=== PATIENT | female | born 1935 | race Caucasian/White ===

== ENCOUNTER 2016-03-09 18:09 | Emergency (ER) | payer MEDICARE ==
--- NOTE | 2016-03-09 18:33 | Emergency Department Record ---
History of Present Illness - General Chief complaint: Allergic Reaction Stated complaint: REACTION TO MEDICATION Time Seen by Provider: 03/09/16 18:24 Source: Patient - History of Present Illness Initial Comments: The patient has been hospitalized twice over the holidays, initially for a "mini stroke" and then also is being treated for pneumonia. She started on zithromax, but had her med changed to doxycycline because of concern with a medication reaction with other meds she was taking. Since the doxy, she has had epigastric discomfort and bruising on her wrist, should, leg and other places. She denies rashes, dysphagia, throat swelling, but has some SOB which she has been thinking was from her pneumonia. She has had about 2 days of this antibiotic. She has a history of chronic a. fib, sometimes with a rapid rate, aortic stenosis with a murmur, kidney failure and renal insufficiency. - Related Data Home Medications Medication Instructions Recorded Confirmed Last Taken Amiodarone HCl 100 mg PO DAILY 11/01/13 03/09/16 1 Day Ago Atorvastatin Calcium [Lipitor] 40 mg PO DAILY 11/01/13 03/09/16 1 Day Ago Calcium Citrate/Vitamin D3 1 each PO BID 11/01/13 03/09/16 1 Day Ago [Calcium Citrate - Vit D Tablet] Carboxymethylcellulose Sodium 15 ml OP QPM 11/01/13 03/09/16 1 Day Ago [Refresh Tears] Clonidine HCl 0.1 mg PO BID PRN 11/01/13 03/09/16 1 Day Ago Docusate Sodium [Colace] 100 mg PO TID PRN 11/01/13 03/09/16 1 Day Ago Doxazosin Mesylate [Cardura] 12 mg PO DAILY 11/01/13 03/09/16 1 Day Ago Fish Oil/Dha/Epa [Fish Oil 1,200 1 each PO BID 11/01/13 03/09/16 1 Day Ago mg Fish Oil] Gabapentin [Neurontin] 600 mg PO TID 11/01/13 03/09/16 1 Day Ago Levothyroxine Sodium [Synthroid] 125 mcg PO DAILY 11/01/13 03/09/16 1 Day Ago Magnesium 250 mg PO DAILY 11/01/13 03/09/16 1 Day Ago Montelukast Sodium [Singulair] 10 mg PO DAILY 11/01/13 03/09/16 1 Day Ago Multivitamin [Multi-Vitamin Daily] 1 each PO DAILY 11/01/13 03/09/16 1 Day Ago Omeprazole [Prilosec] 20 mg PO DAILY 11/01/13 03/09/16 1 Day Ago Propylene Glycol/Peg 400 [Systane 5 ml OP QPM 11/01/13 03/09/16 1 Day Ago 0.3-0.4% Eye Drops] Psyllium Husk (with Sugar) 3.4 gm PO DAILY PRN 11/01/13 03/09/16 1 Day Ago [Metamucil Packet] Ubidecarenone [Coq-10] 200 mg PO DAILY 11/01/13 03/09/16 1 Day Ago Warfarin Sodium [Coumadin] 5 mg PO DAILY 11/01/13 03/09/16 1 Day Ago Spironolactone [Aldactone] 50 mg PO DAILY 02/01/14 03/09/16 1 Day Ago Ascorbate Calcium/Bioflavonoid 1 each PO DAILY tab 11/21/15 03/09/16 1 Day Ago [Eva-C 500 Mg Tablet] Citalopram Hydrobromide [Celexa] 20 mg PO QD tab 11/21/15 03/09/16 1 Day Ago Ferrous Sulfate [Iron] 65 mg PO BID tab 11/21/15 03/09/16 1 Day Ago Polyethylene Glycol 3350 [Miralax] 1 packet PO DAILY packet 11/21/15 03/09/16 1 Day Ago Azelastine HCl 205.5 mcg NS BID 01/29/16 03/09/16 1 Day Ago Propylene Glycol/Peg 400 [Systane 2 drop OP DAILY 01/29/16 03/09/16 1 Day Ago 0.3-0.4% Eye Drops] Baclofen 10 mg PO DAILY 02/26/16 03/09/16 1 Day Ago Melatonin 10 mg PO QHS 02/26/16 03/09/16 1 Day Ago Allergies Allergy/AdvReac Type Severity Reaction Status Date / Time aspirin [From Aggrenox] Allergy Severe HEADACHE Verified 03/09/16 18:27 dipyridamole [From Aggrenox] Allergy Severe HEADACHE Verified 03/09/16 18:27 imipramine HCl Allergy Severe HYPERTENSION, Verified 03/09/16 18:27 [From Tofranil] INCREASED HEART RATE methyldopa [From Aldomet] Allergy Severe HEPATITIS Verified 03/09/16 18:27 methyldopate HCl Allergy Severe HEPATITIS Verified 03/09/16 18:27 [From Aldomet] Tetanus Vaccines and Toxoid Allergy Severe RASH, Verified 03/09/16 18:27 [Tetanus Vaccines & Toxoid] SWELLING, ITCHING clopidogrel bisulfate Allergy Intermediate BRUISING Verified 03/09/16 18:27 [From Plavix] lidocaine Allergy Intermediate FAINTING Verified 03/09/16 18:27 metaxalone [From Skelaxin] Allergy Intermediate ITCHING Verified 03/09/16 18:27 oxybutynin chloride Allergy Intermediate HEARTBURN Verified 03/09/16 18:27 [From Ditropan] paroxetine HCl [From Paxil] Allergy Intermediate DIARRHEA Verified 03/09/16 18: 27 potassium Allergy Mild NAUSEA Verified 03/09/16 18:27 carbamazepine [From Tegretol] AdvReac Intermediate HYPERTENSIO Verified 18:27 N Review of Systems Reviewed: No additional complaints except as noted below Constitutional: Reports: As per HPI. Denies: Chills, Fever, Malaise, Night sweats, Weakness, Weight change Eyes: Reports: As per HPI. Denies: Eye discharge, Eye pain, Photophobia, Vision change ENT: Reports: As per HPI. Denies: Congestion, Dental pain, Ear pain, Epistaxis , Hearing loss, Throat pain Respiratory: Reports: As per HPI. Denies: Cough, Dyspnea, Hemoptysis, Stridor, Wheezes Cardiovascular: Reports: As per HPI. Denies: Arrhythmia, Chest pain, Dyspnea on exertion, Edema, Murmurs, Orthopnea, Palpitations, Paroxysmal nocturnal dyspnea, Rheumatic Fever, Syncope Endocrine: Reports: As per HPI. Denies: Fatigue, Heat or cold intolerance, Polydipsia, Polyuria Gastrointestinal: Reports: As per HPI. Denies: Abdominal pain, Constipation, Diarrhea, Hematemesis, Hematochezia, Melena, Nausea, Vomiting Genitourinary: Reports: As per HPI. Denies: Abnormal menses, Discharge, Dyspareunia, Dysuria, Frequency, Hematuria, Incontinence, Retention, Urgency Musculoskeletal: Reports: As per HPI. Denies: Arthralgia, Back pain, Gout, Joint swelling, Myalgia, Neck pain Skin: Reports: As per HPI. Denies: Bruising, Change in color, Change in hair/ nails, Lesions, Pruritus, Rash Neurological: Reports: As per HPI. Denies: Abnormal gait, Confusion, Headache, Numbness, Paresthesias, Seizure, Tingling, Tremors, Vertigo, Weakness Psychiatric: Reports: As per HPI. Denies: Anxiety, Auditory hallucinations, Depression, Homicidal thoughts, Suicidal thoughts, Visual hallucinations Hematological/Lymphatic: Reports: As per HPI. Denies: Anemia, Blood Clots, Easy bleeding, Easy bruising, Swollen glands Past Medical History - SOCIAL HISTORY Smoking Status: Former smoker Drug Use: None - RESPIRATORY Hx Respiratory Disorders: No Hx Bronchitis: Yes (not in past couple of yrs) - CARDIOVASCULAR Hx Cardio Disorders: Yes Hx Irregular Heartbeat: Yes (A fib) - NEURO Hx Neuro Disorders: Yes Hx CVA: Yes - GI Hx GI Disorders: Yes Hx Reflux: Yes Hx Irritable Bowel: Yes Hx Ulcer: Yes Hx of Polyps: Yes Comment:: Microscopic colitis, Christiansen's Esophagus - Hx Genitourinary Disorders: Yes Hx Bladder Problem: Yes - ENDOCRINE Hx Endocrine Disorders: Yes Hx Diabetes: Yes Hx Thyroid Disease: Yes Comment:: 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 - MUSCULOSKELETAL Hx Musculoskeletal Disorders: Yes Hx Arthritis: Yes Hx Fibromyalgia: Yes Comment:: DJD - PSYCH Hx Psych Problems: No - HEMATOLOGY/ONCOLOGY Hx Hematology/Oncology Disorders: Yes Hx Anemia: Yes Family Medical History Hx Cancer: Mother, Brother/Sister Hx Heart Disease: Father, Brother/Sister Physical Exam - General General Appearance: Alert, Oriented x3, Cooperative, No acute distress - Head Head exam: Normal inspection Head exam detail: Other (no residual facial droop or defecit ). negative: Tenderness of temporal artery - Eye Eye exam: Normal appearance, PERRL, EOMI. negative: Nystagmus Pupils: Normal accommodation - ENT ENT exam: Normal exam, Mucous membranes moist, Normal external ear exam, Normal orophraynx, TM's normal bilaterally Ear exam: Normal external inspection. negative: External canal tenderness Nasal Exam: Normal inspection. negative: Discharge, Sinus tenderness Mouth exam: Normal external inspection, Tongue normal Teeth exam: Normal inspection. negative: Dental caries Throat exam: Normal inspection. negative: Tonsillar erythema, Tonsillar exudate - Neck Neck exam: Normal inspection, Full ROM. negative: Lymphadenopathy, Meningismus , Tenderness - Respiratory Respiratory exam: Decreased breath sounds, Prolonged expiratory, Other (kyphosis ). negative: Accessory muscle use, Chest wall tenderness, Rales, Respiratory distress, Rhonchi, Stridor, Wheezes - Cardiovascular Cardiovascular Exam: Regular rate, Normal rhythm, Normal heart sounds - GI/Abdominal GI/Abdominal exam: Soft, Normal bowel sounds, Tenderness (mild tenderness in epigastric region, no other adominal tenderness) - Rectal Rectal exam: Deferred - exam: Deferred - Extremities Extremities exam: Normal inspection, Full ROM, Normal capillary refill, Pedal edema (bilateral 1+ pitting edema up to distal 1/2 of calf bilaterally, appears chronic). negative: Calf tenderness, Joint swelling, Tenderness - Back Back exam: Reports: Normal inspection, Full ROM. Denies: Muscle spasm, Rash noted, Tenderness, Vertebral tenderness - Neurological Neurological exam: Alert, CN II-XII intact, Normal gait, Oriented X3, Reflexes normal - Psychiatric Psychiatric exam: Normal affect, Normal mood - Skin Skin exam: Dry, Intact, Normal color, Warm, Other (ecchymosis over left volar wrist, left shoulder). negative: Petechiae, Rash Course - Reevaluation(s) Reevaluation #1: The patient's results were all reviewed and compared to the extensive old record faxed from [facility] Numerous chronic changes such as chronic renal insufficiency, anemia, atrial fib, CMG, all of which are old. She is comfortable discontinuing the antibiotic as her CXR shows no pneumonia and she feels she is reacting to it with bruising. She has appointment with the chronic disease epidemiologist on Thursday in 36 hours and will follow up then. She also has a PCP follow up in the next week. 03/09/16 22:03 Reevaluation #2: Rectal exam was nontender, scant stool on glove and was negative for hemoccult blood. She is currently taking iron pills for this chronic anemia. 03/09/16 22:08 Medical Decision Making - Management Options MDM Management: No Additional Work-up Planned - Data Complexity MDM Data: Labs Ordered and/or Reviewed, X-Ray Ordered and/or Reviewed (CXR: Stable cardiomegally, no acute abnormality per radiologist.), EKG Ordered and/ or Reviewed - Lab Data Result diagrams: 03/09/16 18:50 03/09/16 18:50 - EKG Data -: EKG Interpreted by Me EKG: No Acute Changes, Unchanged From Previous (Old LBBB, NSR as before) Disposition Disposition: Discharge Clinical Impression: Bruises easily, Adverse effect of doxycycline, Renal insufficiency Disposition: Home, Self-Care Condition: (1) Good Instructions: Adverse Drug Reaction (ED) Additional Instructions: Discontinue doxycycline. Continue present meds. Follow up Thursday03-11-16 as previously arranged with chronic disease epidemiologist for hg. of 8.7 Follow up with PCP.
[2016-03-09 18:57] LABS: BASO % 0.5 % (0-6); EOS % 4.4 % (0-6); GRAN % 65.9 % (47-80); HEMOGLOBIN 8.7 gm/dl (11.6-16.0); MEAN CELL VOLUME 95.7 fl (81-97); MEAN CORPUSCULAR HGB CONC 32.2 g/dl (32-36); MEAN PLATELET VOLUME 8.3 fl (7.4-10.4); MONO % 11.2 % (0-9); PLATELET COUNT 227 K/uL (130-400); RED BLOOD COUNT 2.82 M/uL (3.80-5.40); RED CELL DISTRIBUTION WIDTH 12.4 % (11.5-14.5); WHITE BLOOD COUNT W/O DIFF 6.1 K/uL (4.2-12.2)
[2016-03-09 18:58] LABS: MEAN CORPUSCULAR HEMOGLOBIN 30.8 pg (27-33)
[2016-03-09 19:08] LABS: ALBUMIN 3.9 gm/dL (3.5-5.0); ALKALINE PHOSPHATASE 51 U/L (38-126); ALT/SGPT 41 U/L (9-52); ANION GAP 5.8 (7-16); AST/SGOT 19 U/L (14-36); BILIRUBIN,TOTAL 0.29 mg/dL (0.2-1.3); BLOOD UREA NITROGEN 42 mg/dL (7-17); CARBON DIOXIDE 25.2 mmol/L (22-30); CREATINE PHOSPHOKINASE 26 U/L (30-135); CREATININE 1.8 mg/dL (0.52-1.04); EST GLOMERULAR FILTRATION RATE 29 ml/min; GLUCOSE,RANDOM 104 mg/dL (70-110); LIPASE 79 U/L (23-300); TOTAL PROTEIN 6.7 gm/dL (6.3-8.2)
[2016-03-09 19:12] LABS: D-DIMER 1.06 mg/L FEU (0-0.59); INR 1.83; PARTIAL THROMBOPLASTIN TIME 37.3 SECONDS (24.5-39.1); PROTHROMBIN TIME (PATIENT) 20.7 SECONDS (9.5-12.1)
[2016-03-09 19:20] LABS: CKMB 1.9 ug/L (0-6)
[2016-03-09 19:22] LABS: TROPONIN I < 0.012 ng/mL (0.00-0.034)
[2016-03-09 20:36] LABS: URINE APPEARANCE CLEAR; URINE BILIRUBIN NEGATIVE (NEGATIVE); URINE BLOOD NEGATIVE (NEGATIVE); URINE COLOR YELLOW; URINE GLUCOSE (UA) NEGATIVE (NEGATIVE); URINE KETONE NEGATIVE (NEGATIVE); URINE LEUKOCYTE ESTERASE NEGATIVE (NEGATIVE); URINE NITRITE NEGATIVE (NEGATIVE); URINE PROTEIN NEGATIVE (NEGATIVE); URINE UROBILINOGEN 0.2 E.U./dL (0.20 - 1.00)
--- NOTE | 2016-03-13 12:52 | RADIOLOGY REPORT ---
EXAM: CHEST, TWO VIEWS HISTORY: CHEST TIGHTNESS AND ATRIAL FIBRILLATION. RECENT PNEUMONIA. MEDICATION REACTION TODAY. SHORTNESS OF BREATH. TECHNIQUE: AP and lateral upright views of the chest were obtained. Comparison: 07/03/15. FINDINGS: The heart is mildly enlarged, but stable. The mediastinum and pulmonary vasculature are normal. There is calcification of the aorta. The lungs are hyperinflated consistent with COPD. There are no acute infiltrates or effusion. There is no pneumothorax. The bones appear intact. IMPRESSION: 1. STABLE CARDIOMEGALY AND COPD. 2. NO ACUTE CHEST PATHOLOGY. JOB NUMBER: [id number] [facility] [place] [facility]
== END 2016-03-09 22:24 | disposition home or self-care (01) ==
LOC: ER 18:09
DX: T36.4X5A Adverse effect of tetracyclines, initial encounter (principal); R06.02 Shortness of breath; R10.13 Epigastric pain; S40.012A Contusion of left shoulder, initial encounter; S60.212A Contusion of left wrist, initial encounter; I48.91 Unspecified atrial fibrillation; N18.9 Chronic kidney disease, unspecified; R07.89 Other chest pain; Z79.01 Long term (current) use of anticoagulants; D64.9 Anemia, unspecified
CPT/HCPCS: 71020; 80048; 80076; 81003; 82550; 82553; 83690; 83880; 84443; 84484; 85025; 85379; 85610; 85730; 93005; 93010; 99283; 99284

== ENCOUNTER 2016-05-13 06:18 | Emergency (ER) | payer MEDICARE ==
--- NOTE | 2016-05-13 06:43 | Emergency Department Record ---
History of Present Illness - General Source: Patient Mode of Arrival: Ambulatory Limitations: No limitations - History of Present Illness Initial Comments: 80 yo female presents to ED with a CC of fast, irregular heart beat that woke her up around 4:00 AM. Patient reports a history of previous symptoms requiring cardioversion previously. Patient describes her symptoms as a "pressure" in the upper chest/throat area. 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 DC Complaint: Atrial fibrillation Onset/Timin -: Hour(s) Context: Awoke with symptoms Arrythmia History: Atrial fibrillation, History of electrical cardioversion, On anti-coagulants Associated Symptoms: Chest pain <WARREN GOLDSMITH - Last Filed: 05/13/16 06:36> <Matt Harrell - Last Filed: 05/13/16 08:23> - General Chief Complaint: Arrythmia/Palpitations Stated Complaint: AFIB Time Seen by Provider: 05/13/16 06:35 - Related Data Home Medications Medication Instructions Recorded Confirmed Last Taken Amiodarone HCl 100 mg PO DAILY 11/01/13 03/09/16 1 Day Ago Atorvastatin Calcium [Lipitor] 40 mg PO DAILY 11/01/13 03/09/16 1 Day Ago Calcium Citrate/Vitamin D3 1 each PO BID 11/01/13 03/09/16 1 Day Ago [Calcium Citrate - Vit D Tablet] Carboxymethylcellulose Sodium 15 ml OP QPM 11/01/13 03/09/16 1 Day Ago [Refresh Tears] Clonidine HCl 0.1 mg PO BID PRN 11/01/13 03/09/16 1 Day Ago Docusate Sodium [Colace] 100 mg PO TID PRN 11/01/13 03/09/16 1 Day Ago Doxazosin Mesylate [Cardura] 12 mg PO DAILY 11/01/13 03/09/16 1 Day Ago Fish Oil/Dha/Epa [Fish Oil 1,200 1 each PO BID 11/01/13 03/09/16 1 Day Ago mg Fish Oil] Gabapentin [Neurontin] 600 mg PO TID 11/01/13 03/09/16 1 Day Ago Levothyroxine Sodium [Synthroid] 125 mcg PO DAILY 11/01/13 03/09/16 1 Day Ago Magnesium 250 mg PO DAILY 11/01/13 03/09/16 1 Day Ago Montelukast Sodium [Singulair] 10 mg PO DAILY 11/01/13 03/09/16 1 Day Ago Multivitamin [Multi-Vitamin Daily] 1 each PO DAILY 11/01/13 03/09/16 1 Day Ago Omeprazole [Prilosec] 20 mg PO DAILY 11/01/13 03/09/16 1 Day Ago Propylene Glycol/Peg 400 [Systane 5 ml OP QPM 11/01/13 03/09/16 1 Day Ago 0.3-0.4% Eye Drops] Psyllium Husk (with Sugar) 3.4 gm PO DAILY PRN 11/01/13 03/09/16 1 Day Ago [Metamucil Packet] Ubidecarenone [Coq-10] 200 mg PO DAILY 11/01/13 03/09/16 1 Day Ago Warfarin Sodium [Coumadin] 5 mg PO DAILY 11/01/13 03/09/16 1 Day Ago Spironolactone [Aldactone] 50 mg PO DAILY 02/01/14 03/09/16 1 Day Ago Ascorbate Calcium/Bioflavonoid 1 each PO DAILY tab 11/21/15 03/09/16 1 Day Ago [Eva-C 500 Mg Tablet] Citalopram Hydrobromide [Celexa] 20 mg PO QD tab 11/21/15 03/09/16 1 Day Ago Ferrous Sulfate [Iron] 65 mg PO BID tab 11/21/15 03/09/16 1 Day Ago Polyethylene Glycol 3350 [Miralax] 1 packet PO DAILY packet 11/21/15 03/09/16 1 Day Ago Azelastine HCl 205.5 mcg NS BID 01/29/16 03/09/16 1 Day Ago Propylene Glycol/Peg 400 [Systane 2 drop OP DAILY 01/29/16 03/09/16 1 Day Ago 0.3-0.4% Eye Drops] Baclofen 10 mg PO DAILY 02/26/16 03/09/16 1 Day Ago Melatonin 10 mg PO QHS 02/26/16 03/09/16 1 Day Ago Allergies Allergy/AdvReac Type Severity Reaction Status Date / Time aspirin [From Aggrenox] Allergy Severe HEADACHE Verified 03/09/16 18:27 dipyridamole [From Aggrenox] Allergy Severe HEADACHE Verified 03/09/16 18:27 imipramine HCl Allergy Severe HYPERTENSION, Verified 03/09/16 18:27 [From Tofranil] INCREASED HEART RATE methyldopa [From Aldomet] Allergy Severe HEPATITIS Verified 03/09/16 18:27 methyldopate HCl Allergy Severe HEPATITIS Verified 03/09/16 18:27 [From Aldomet] Tetanus Vaccines and Toxoid Allergy Severe RASH, Verified 03/09/16 18:27 [Tetanus Vaccines & Toxoid] SWELLING, ITCHING clopidogrel bisulfate Allergy Intermediate BRUISING Verified 03/09/16 18:27 [From Plavix] lidocaine Allergy Intermediate FAINTING Verified 03/09/16 18:27 metaxalone [From Skelaxin] Allergy Intermediate ITCHING Verified 03/09/16 18:27 oxybutynin chloride Allergy Intermediate HEARTBURN Verified 03/09/16 18:27 [From Ditropan] paroxetine HCl [From Paxil] Allergy Intermediate DIARRHEA Verified 03/09/16 18: 27 potassium Allergy Mild NAUSEA Verified 03/09/16 18:27 carbamazepine [From Tegretol] AdvReac Intermediate HYPERTENSIO Verified 18:27 N Travel Screening - Travel/Exposure Within Last 30 Days Have you traveled within the last 30 days?: No - Travel Symptoms Symptom Screening: None <WARREN GOLDSMITH - Last Filed: 05/13/16 06:36> Review of Systems Constitutional: Denies: Chills, Fever, Malaise, Night sweats Eyes: Denies: Eye discharge, Eye pain ENT: Denies: Congestion, Ear pain, Epistaxis Respiratory: Denies: Cough, Dyspnea Cardiovascular: Reports: Chest pain, Palpitations. Denies: Dyspnea on exertion Endocrine: Denies: Fatigue, Heat or cold intolerance Gastrointestinal: Denies: Abdominal pain, Nausea, Vomiting Genitourinary: Denies: Incontinence, Retention Musculoskeletal: Denies: Arthralgia, Back pain Skin: Denies: Bruising, Change in color Neurological: Denies: Abnormal gait, Confusion, Seizure Psychiatric: Denies: Anxiety Hematological/Lymphatic: Reports: Easy bleeding, Easy bruising. Denies: Anemia , Blood Clots <WARREN GOLDSMITH - Last Filed: 05/13/16 06:36> Past Medical History - SOCIAL HISTORY Smoking Status: Former smoker - RESPIRATORY Hx Respiratory Disorders: No Hx Bronchitis: Yes (not in past couple of yrs) - CARDIOVASCULAR Hx Cardio Disorders: Yes Hx Irregular Heartbeat: Yes (A fib) Comment:: cardioversion needed x3 for a-fib - NEURO Hx Neuro Disorders: Yes Hx CVA: Yes - GI Hx GI Disorders: Yes Hx Reflux: Yes Hx Irritable Bowel: Yes Hx Ulcer: Yes Hx of Polyps: Yes Comment:: Microscopic colitis, Christiansen's Esophagus - Hx Genitourinary Disorders: Yes Hx Bladder Problem: Yes - ENDOCRINE Hx Endocrine Disorders: Yes Hx Diabetes: Yes Hx Thyroid Disease: Yes Comment:: 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 - MUSCULOSKELETAL Hx Musculoskeletal Disorders: Yes Hx Arthritis: Yes Hx Fibromyalgia: Yes Comment:: DJD - PSYCH Hx Psych Problems: No - HEMATOLOGY/ONCOLOGY Hx Hematology/Oncology Disorders: Yes Hx Anemia: Yes <WARREN GOLDSMITH - Last Filed: 05/13/16 06:36> Family Medical History Any Significant Family History?: Yes Hx Cancer: Mother, Brother/Sister Hx Heart Disease: Father, Brother/Sister <WARREN GOLDSMITH - Last Filed: 05/13/16 06:36> Physical Exam - General General Appearance: Alert, Oriented x3, Cooperative, Mild distress Limitations: No limitations - Head Head exam: Atraumatic, Normocephalic, Normal inspection Head exam detail: negative: Abrasion, Contusion, Tong's sign, General tenderness, Hematoma, Laceration - Eye Eye exam: Normal appearance. negative: Conjunctival injection, Periorbital swelling, Periorbital tenderness, Scleral icterus - ENT Ear exam: negative: Auricular hematoma, Auricular trauma Nasal Exam: negative: Active bleeding, Discharge, Dried blood, Foreign body Mouth exam: negative: Drooling, Laceration, Muffled voice, Tongue elevation - Neck Neck exam: Normal inspection. negative: Meningismus - Respiratory Respiratory exam: Normal lung sounds bilaterally. negative: Rales, Respiratory distress, Rhonchi, Stridor - Cardiovascular Cardiovascular Exam: Irregular rhythm, Tachycardia - GI/Abdominal GI/Abdominal exam: Soft. negative: Rebound, Rigid, Tenderness - Rectal Rectal exam: Deferred - exam: Deferred - Extremities Extremities exam: Normal inspection. negative: Calf tenderness, Pedal edema, Tenderness - Back Back exam: Denies: CVA tenderness (R), CVA tenderness (L) - Neurological Neurological exam: Alert, Normal gait, Oriented X3 - Psychiatric Psychiatric exam: Normal affect, Normal mood - Skin Skin exam: Normal color. negative: Abrasion Type of lesion: negative: abrasion <RUPALYARYWARREN - Last Filed: 05/13/16 06:36> Course Vital Signs 05/13/16 06:22 Temperature 97.9 F Pulse Rate 143 H Respiratory 24 Rate Blood Pressure 100/85 Pulse Ox 95 - Reevaluation(s) Reevaluation #1: 05/13/16 06:36 EKG: Atrial Fibrillation 142 LBBB, LAD Unchanged 02/01/2014 Reevaluation #2: 05/13/16 06:53 Patient seen and examined, Cardizem qttp and initial laboratory evaluation started. Case discussed with oncoming provider, will assume care and disposition at this time. <RUPALWARREN - Last Filed: 05/13/16 06:36> Vital Signs 05/13/16 05/13/16 06:22 07:01 Temperature 97.9 F Pulse Rate 143 H Pulse Rate [ 123 H Hand Mica Plate Layer ] Respiratory 24 12 Rate Blood Pressure 100/85 Blood Pressure 94/65 [Left Arm] Pulse Ox 95 96 - Reevaluation(s) Reevaluation #1: The patient is doing better at this time. She denies any CP, SOB, or LORI. Her HR is down to 100-110. 05/13/16 07:09 Reevaluation #2: The patient is doing better at this time. Her HR is around 100 and she denies any CP or SOB. The patient's BP is registering 90-100 systolic which she says is normal for her when she goes into Afib. I did discuss the case with Dr. Willard at [facility] and he does accept the patient in transfer. 05/13/16 08:21 <Matt Harrell - Last Filed: 05/13/16 08:23> Medical Decision Making - Data Complexity MDM Data: Labs Ordered and/or Reviewed, EKG Ordered and/or Reviewed - Lab Data Result diagrams: 05/13/16 06:30 05/13/16 06:30 Lab Results 05/13/16 Range/Units 06:30 WBC 8.3 (4.2-12.2) K/uL RBC 3.57 L (3.80-5.40) M/uL Hgb 11.0 L (11.6-16.0) gm/dl Hct 33.5 L (35.0-47.0) % MCV 93.8 (81-97) fl MCH 30.8 (27-33) pg MCHC 32.8 (32-36) g/dl RDW 12.5 (11.5-14.5) % Plt Count 230 (130-400) K/uL MPV 9.0 (7.4-10.4) fl Gran % 68.3 (47-80) % Lymphocytes % 18.5 (16-45) % Monocytes % 10.9 H (0-9) % Eosinophils % 2.1 (0-6) % Basophils % 0.2 (0-6) % - EKG Data -: EKG Interpreted by [facility]h EKG: LBBB (Chronic with rapid Afib.) <Matt Harrell - Last Filed: 05/13/16 08:23> Disposition <WARREN GOLDSMITH - Last Filed: 05/13/16 06:36> Disposition: Transfer Transfer To: [facility] Reason For Transfer: Rapid A fib. Accepting Physician: [facility] Time Discussed w/Accepting Physician: 08:23 Time of Disposition: 08:23 <Matt Harrell - Last Filed: 05/13/16 08:23> Clinical Impression: Atrial fibrillation with rapid ventricular response Disposition: Acute Care Hospital Transfer Condition: (2) Stable Forms: Patient Portal Access
[2016-05-13] MEDS ORDERED: DILTIAZEM HCL 125 MG in 0.9 % SODIUM CHLORIDE 100ML 100 ML IV SCH (06:45)
[2016-05-13 07:07] LABS: BASO % 0.2 % (0-6); EOS % 2.1 % (0-6); GRAN % 68.3 % (47-80); HEMATOCRIT 33.5 % (35.0-47.0); LYMPH % 18.5 % (16-45); MEAN CELL VOLUME 93.8 fl (81-97); MEAN CORPUSCULAR HEMOGLOBIN 30.8 pg (27-33); MEAN CORPUSCULAR HGB CONC 32.8 g/dl (32-36); MONO % 10.9 % (0-9); PLATELET COUNT 230 K/uL (130-400); RED BLOOD COUNT 3.57 M/uL (3.80-5.40); RED CELL DISTRIBUTION WIDTH 12.5 % (11.5-14.5); WHITE BLOOD COUNT W/O DIFF 8.3 K/uL (4.2-12.2)
[2016-05-13] MEDS ORDERED: 0.9 % SODIUM CHLORIDE 1,000 ML BAG IV ONE ×2 (07:07→11:55)
[2016-05-13 07:15] LABS: INR 2.2; PROTHROMBIN TIME (PATIENT) 24.9 SECONDS (9.5-12.1)
[2016-05-13 07:28] LABS: CKMB 1.2 ug/L (0-6); TROPONIN I 0.013 ng/mL (0.00-0.034)
[2016-05-13 08:01] LABS: ALBUMIN 3.8 gm/dL (3.5-5.0); CARBON DIOXIDE 27.8 mmol/L (22-30)
[2016-05-13 08:03] LABS: ALB/GLOB RATIO 1.4 (1.1-1.8); ALKALINE PHOSPHATASE 66 U/L (38-126); ALT/SGPT 23 U/L (9-52); ANION GAP 11.2 (7-16); AST/SGOT 18 U/L (14-36); BILIRUBIN,TOTAL 0.25 mg/dL (0.2-1.3); BLOOD UREA NITROGEN 20 mg/dL (7-17); CREATINE PHOSPHOKINASE < 20 U/L (30-135); CREATININE 1.4 mg/dL (0.52-1.04); EST GLOMERULAR FILTRATION RATE 38 ml/min; GLUCOSE,RANDOM 103 mg/dL (70-110); TOTAL PROTEIN 6.5 gm/dL (6.3-8.2)
[2016-05-13] MEDS ORDERED: POTASSIUM CHLORIDE 20 MEQ TABLET PO ONE (08:14)
[2016-05-13] MEDS ORDERED: AL HYDROX/MAG HYDROX 30ML UD PO ONE (09:09)
== END 2016-05-13 12:02 | disposition short-term general hospital (02) ==
LOC: ER 06:18
DX: I48.0 Paroxysmal atrial fibrillation (principal); Z79.01 Long term (current) use of anticoagulants; F17.210 Nicotine dependence, cigarettes, uncomplicated; E11.9 Type 2 diabetes mellitus without complications
CPT/HCPCS: 80053; 82550; 82553; 84484; 85025; 85610; 93005; 93010; 96365; 96366; 99285; J7030

== ENCOUNTER 2016-06-04 15:44 | Emergency (ER) | payer MEDICARE ==
--- NOTE | 2016-06-04 16:37 | Emergency Department Record ---
History of Present Illness - General Chief Complaint: Fall Injury Stated Complaint: FALL,HEAD INJURY Time Seen by Provider: 06/04/16 16:01 Source: Patient, RN notes reviewed Mode of Arrival: Ambulatory - History of Present Illness Initial Comments: fall one hour ago and her Dr sent her here because she is on coumadin and she has a headache and neck stiffness and buttox pain. She hit on her buttox first than the back of the head. No LOC and no nausea or vomiting. 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 Place Fall Occurred: Home Loss of Consciousness: None Prolonged Down Time?: No Symptoms Prior to Fall: None Location: Head, Buttocks Severity: Moderate Context: History of frequent falls, Tripped/slipped - [place] Coma Scale Eye Response: (4) Open spontaneously Motor Response: (6) Obeys commands Verbal Response: (5) Oriented [place] Total: 15 - Related Data Home Medications Medication Instructions Recorded Confirmed Last Taken Amiodarone HCl 100 mg PO DAILY 11/01/13 06/04/16 06/04/16 Atorvastatin Calcium [Lipitor] 40 mg PO DAILY 11/01/13 06/04/16 06/04/16 Calcium Citrate/Vitamin D3 1 each PO BID 11/01/13 06/04/16 06/04/16 [Calcium Citrate - Vit D Tablet] Carboxymethylcellulose Sodium 15 ml OP QPM 11/01/13 06/04/16 06/04/16 [Refresh Tears] Clonidine HCl 0.1 mg PO BID PRN 11/01/13 06/04/16 06/04/16 Docusate Sodium [Colace] 100 mg PO TID PRN 11/01/13 06/04/16 06/04/16 Doxazosin Mesylate [Cardura] 12 mg PO DAILY 11/01/13 06/04/16 06/04/16 Fish Oil/Dha/Epa [Fish Oil 1,200 1 each PO BID 11/01/13 06/04/16 06/04/16 mg Fish Oil] Gabapentin [Neurontin] 600 mg PO TID 11/01/13 06/04/16 06/04/16 Levothyroxine Sodium [Synthroid] 125 mcg PO DAILY 11/01/13 06/04/16 06/04/16 Magnesium 250 mg PO DAILY 11/01/13 06/04/16 06/04/16 Montelukast Sodium [Singulair] 10 mg PO DAILY 11/01/13 06/04/16 06/04/16 Multivitamin [Multi-Vitamin Daily] 1 each PO DAILY 11/01/13 06/04/16 06/04/16 Omeprazole [Prilosec] 20 mg PO DAILY 11/01/13 06/04/16 06/04/16 Psyllium Husk (with Sugar) 3.4 gm PO DAILY PRN 11/01/13 06/04/16 06/04/16 [Metamucil Packet] Ubidecarenone [Coq-10] 200 mg PO DAILY 11/01/13 06/04/16 06/04/16 Warfarin Sodium [Coumadin] 5 mg PO DAILY 11/01/13 06/04/16 06/04/16 Spironolactone [Aldactone] 50 mg PO DAILY 02/01/14 06/04/16 06/04/16 Ascorbate Calcium/Bioflavonoid 1 each PO DAILY tab 11/21/15 06/04/16 06/04/16 [Eva-C 500 Mg Tablet] Citalopram Hydrobromide [Celexa] 20 mg PO QD tab 11/21/15 06/04/16 06/04/16 Polyethylene Glycol 3350 [Miralax] 1 packet PO DAILY packet 11/21/15 06/04/16 06/04/16 Azelastine HCl 205.5 mcg NS BID 01/29/16 06/04/16 06/04/16 Propylene Glycol/Peg 400 [Systane 2 drop OP DAILY 01/29/16 06/04/16 06/04/16 0.3-0.4% Eye Drops] Baclofen 10 mg PO DAILY 02/26/16 06/04/16 06/04/16 Melatonin 10 mg PO QHS 02/26/16 06/04/16 06/04/16 Allergies Allergy/AdvReac Type Severity Reaction Status Date / Time aspirin [From Aggrenox] Allergy Severe HEADACHE Verified 06/04/16 16:01 dipyridamole [From Aggrenox] Allergy Severe HEADACHE Verified 06/04/16 16:01 imipramine HCl Allergy Severe HYPERTENSION, Verified 06/04/16 16:01 [From Tofranil] INCREASED HEART RATE methyldopa [From Aldomet] Allergy Severe HEPATITIS Verified 06/04/16 16:01 methyldopate HCl Allergy Severe HEPATITIS Verified 06/04/16 16:01 [From Aldomet] Tetanus Vaccines and Toxoid Allergy Severe RASH, Verified 06/04/16 16:01 [Tetanus Vaccines & Toxoid] SWELLING, ITCHING clopidogrel bisulfate Allergy Intermediate BRUISING Verified 06/04/16 16:01 [From Plavix] lidocaine Allergy Intermediate FAINTING Verified 06/04/16 16:01 metaxalone [From Skelaxin] Allergy Intermediate ITCHING Verified 06/04/16 16:01 oxybutynin chloride Allergy Intermediate HEARTBURN Verified 06/04/16 16:01 [From Ditropan] paroxetine HCl [From Paxil] Allergy Intermediate DIARRHEA Verified 06/04/16 16: 01 potassium Allergy Mild NAUSEA Verified 06/04/16 16:01 carbamazepine [From Tegretol] AdvReac Intermediate HYPERTENSIO Verified 16:01 N Travel Screening - Travel/Exposure Within Last 30 Days Have you traveled within the last 30 days?: No - Travel/Exposure Within Last Year Have you traveled outside the [place] in the last year?: No - Additonal Travel Details Have you been exposed to anyone with a communicable illness?: No - Travel Symptoms Symptom Screening: None Review of Systems Reviewed: No additional complaints except as noted below Constitutional: Reports: As per HPI. Denies: Chills, Fever, Malaise, Night sweats, Weakness, Weight change Eyes: Reports: As per HPI. Denies: Eye discharge, Eye pain, Photophobia, Vision change ENT: Reports: As per HPI. Denies: Congestion, Dental pain, Ear pain, Epistaxis , Hearing loss, Throat pain Respiratory: Reports: As per HPI. Denies: Cough, Dyspnea, Hemoptysis, Stridor, Wheezes Cardiovascular: Reports: As per HPI. Denies: Arrhythmia, Chest pain, Dyspnea on exertion, Edema, Murmurs, Orthopnea, Palpitations, Paroxysmal nocturnal dyspnea, Rheumatic Fever, Syncope Endocrine: Reports: As per HPI. Denies: Fatigue, Heat or cold intolerance, Polydipsia, Polyuria Gastrointestinal: Reports: As per HPI. Denies: Abdominal pain, Constipation, Diarrhea, Hematemesis, Hematochezia, Melena, Nausea, Vomiting Genitourinary: Reports: As per HPI. Denies: Abnormal menses, Discharge, Dyspareunia, Dysuria, Frequency, Hematuria, Incontinence, Retention, Urgency Musculoskeletal: Reports: As per HPI, Other (neck pain). Denies: Arthralgia, Back pain, Gout, Joint swelling, Myalgia, Neck pain Skin: Reports: As per HPI. Denies: Bruising, Change in color, Change in hair/ nails, Lesions, Pruritus, Rash Neurological: Reports: As per HPI, Headache. Denies: Abnormal gait, Confusion, Numbness, Paresthesias, Seizure, Tingling, Tremors, Vertigo, Weakness Psychiatric: Reports: As per HPI. Denies: Anxiety, Auditory hallucinations, Depression, Homicidal thoughts, Suicidal thoughts, Visual hallucinations Hematological/Lymphatic: Reports: As per HPI. Denies: Anemia, Blood Clots, Easy bleeding, Easy bruising, Swollen glands Past Medical History - SOCIAL HISTORY Smoking Status: Former smoker Alcohol Use: None Drug Use: None - RESPIRATORY Hx Respiratory Disorders: Yes Hx Bronchitis: Yes (not in past couple of yrs) - CARDIOVASCULAR Hx Cardio Disorders: Yes Hx Irregular Heartbeat: Yes (A fib) Comment:: cardioversion needed x3 for a-fib - NEURO Hx Neuro Disorders: Yes Hx CVA: Yes - GI Hx GI Disorders: Yes Hx Reflux: Yes Hx Irritable Bowel: Yes Hx Ulcer: Yes Hx of Polyps: Yes Comment:: Microscopic colitis, Christiansen's Esophagus - Hx Genitourinary Disorders: Yes Hx Bladder Problem: Yes - ENDOCRINE Hx Endocrine Disorders: Yes Hx Diabetes: Yes Hx Thyroid Disease: Yes Comment:: 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 - MUSCULOSKELETAL Hx Musculoskeletal Disorders: Yes Hx Arthritis: Yes Hx Fibromyalgia: Yes Comment:: DJD - PSYCH Hx Psych Problems: No - HEMATOLOGY/ONCOLOGY Hx Hematology/Oncology Disorders: Yes Hx Anemia: Yes Family Medical History Any Significant Family History?: Yes Hx Cancer: Mother, Brother/Sister Hx Heart Disease: Father, Brother/Sister Physical Exam - General General Appearance: Alert, Oriented x3, Cooperative, No acute distress - Head Head exam: Other (lump on the back of the head) - Eye Eye exam: Normal appearance, PERRL Pupils: Normal accommodation - ENT ENT exam: Normal exam, Mucous membranes moist, Normal external ear exam, Normal orophraynx, TM's normal bilaterally Ear exam: Normal external inspection. negative: External canal tenderness Nasal Exam: Normal inspection. negative: Discharge, Sinus tenderness Mouth exam: Normal external inspection, Tongue normal Teeth exam: Normal inspection. negative: Dental caries Throat exam: Normal inspection. negative: Tonsillar erythema, Tonsillar exudate - Neck Neck exam: Normal inspection, Full ROM, Tenderness - Respiratory Respiratory exam: Normal lung sounds bilaterally. negative: Respiratory distress - Cardiovascular Cardiovascular Exam: Regular rate, Normal rhythm, Normal heart sounds - GI/Abdominal GI/Abdominal exam: Soft, Normal bowel sounds. negative: Tenderness - Rectal Rectal exam: Deferred - exam: Deferred - Extremities Extremities exam: Normal inspection, Full ROM, Normal capillary refill. negative: Tenderness - Back Back exam: Reports: Normal inspection, Full ROM. Denies: Muscle spasm, Rash noted, Tenderness - Neurological Neurological exam: Alert, Normal gait, Oriented X3, Reflexes normal - Psychiatric Psychiatric exam: Normal affect, Normal mood - Skin Skin exam: Dry, Intact, Normal color, Warm Course Vital Signs 06/04/16 16:05 Temperature 97.8 F Pulse Rate 63 Respiratory 16 Rate Blood Pressure 112/53 Pulse Ox [address] Tfaoya and will transter to [facility]. Discussing with Dr. Dasilva trauma and Dr. Guzman. ED to Ed transfer - Reevaluation(s) Reevaluation #1: Kcentra 2000unit given IV in 80 ml , 2000 units over 10 minutes, 06/04/16 17:55 06/04/16 18:07 06/04/16 18:07 Reevaluation #2: 06/04/16 18:07 Medical Decision Making - Data Complexity MDM Data: Labs Ordered and/or Reviewed, X-Ray Ordered and/or Reviewed (CT of head small focal hemorrhages and repeat CT of recommended in a short interval) - Lab Data Result diagrams: 06/04/16 16:40 Disposition Clinical Impression: Atrial fibrillation with rapid ventricular response, Anemia Contusion of head Qualifiers: Encounter type: initial encounter Contusion of head detail: scalp Qualified Code(s): S00.03XA - Contusion of scalp, initial encounter Intracerebral bleed Qualifiers: Intracerebral hemorrhage etiology: traumatic Encounter type: initial encounter Laterality: unspecified laterality Loss of consciousness presence/duration: without LOC Qualified Code(s): S06.360A - Traumatic hemorrhage of cerebrum, unspecified, without loss of consciousness, initial encounter Cervical spine fracture Qualifiers: Encounter type: initial encounter Cervical vertebra fracture level: C3 Fracture type: closed Fracture morphology: unspecified fracture morphology Fracture alignment: nondisplaced Qualified Code(s): S12.201A - Unspecified nondisplaced fracture of third cervical vertebra, initial encounter for closed fracture Disposition: Acute Care Hospital Transfer Condition: (2) Stable Forms: Patient Portal Access
[2016-06-04 16:46] LABS: BASO % 0.5 % (0-6); EOS % 1.8 % (0-6); GRAN % 72.8 % (47-80); HEMATOCRIT 29.5 % (35.0-47.0); HEMOGLOBIN 9.5 gm/dl (11.6-16.0); LYMPH % 15.5 % (16-45); MEAN CELL VOLUME 93.9 fl (81-97); MEAN CORPUSCULAR HEMOGLOBIN 30.2 pg (27-33); MEAN CORPUSCULAR HGB CONC 32.2 g/dl (32-36); MEAN PLATELET VOLUME 8.1 fl (7.4-10.4); MONO % 9.4 % (0-9); PLATELET COUNT 306 K/uL (130-400); RED BLOOD COUNT 3.14 M/uL (3.80-5.40); WHITE BLOOD COUNT W/O DIFF 6.6 K/uL (4.2-12.2)
[2016-06-04 16:57] LABS: INR 3.72
[2016-06-04] MEDS: PHYTONADIONE 10 MG/ML AMPUL IV ONE (17:55)
[2016-06-04] MEDS ORDERED: PROTHROMBIN COMPLEX CONCENTRATE IV ONE (18:00)
[2016-06-04] MEDS: TRANEXAMIC ACID 1,000 MG in 0.9 % SODIUM CHLORIDE 100ML 100 ML IV ONE (18:09)
[2016-06-04] MEDS: TRANEXAMIC ACID 1,000 MG in 0.9 % SODIUM CHLORIDE 500ML 500 ML IV ONE (18:24)
== END 2016-06-04 18:10 | disposition short-term general hospital (02) ==
LOC: ER 15:44
DX: S06.360A Traumatic hemorrhage of cerebrum, unspecified, without loss of consciousness, initial encounter (principal); S12.201A Unspecified nondisplaced fracture of third cervical vertebra, initial encounter for closed fracture; I48.91 Unspecified atrial fibrillation; D64.9 Anemia, unspecified; W18.09XA Striking against other object with subsequent fall, initial encounter; Z91.81 History of falling; Y92.009 Unspecified place in unspecified non-institutional (private) residence as the place of occurrence of the external cause; I10 Essential (primary) hypertension; E11.9 Type 2 diabetes mellitus without complications; Z79.01 Long term (current) use of anticoagulants; Z87.891 Personal history of nicotine dependence; Z86.73 Personal history of transient ischemic attack (TIA), and cerebral infarction without residual deficits
CPT/HCPCS: 99285 ×2; 96374; 96375; 85025; 85610; 72125; 70450; C9132; J3490; J7040

== ENCOUNTER 2016-08-29 20:47 | Emergency (ER) | payer MEDICARE ==
--- NOTE | 2016-08-29 21:02 | Emergency Department Record ---
History of Present Illness - General Chief Complaint: Arrythmia/Palpitations Stated Complaint: A-FIB Time Seen by Provider: 08/29/16 20:59 Source: Patient Mode of Arrival: Ambulatory Limitations: No limitations - History of Present Illness Initial Comments: The patient is here due to feeling like she went into Afib again this afternoon. She has had a hx of the same thing multiple times and has required cardioversion with the last episode 3 months ago. She denies any CP, SOB or LORI but does have a funny aching feeling in her neck which she gets with the Afib. There are no reported recent episodes of CP, SOB or LORI. The patient is presently being treated for a UTI with Keflex. MD Complaint: Atrial fibrillation Onset/Timin -: Hour(s) Context: Occurred during rest Arrythmia History: Atrial fibrillation Associated Symptoms: Denies other symptoms - Related Data Home Medications Medication Instructions Recorded Confirmed Last Taken Amiodarone HCl 200 mg PO QD tab 08/25/16 08/29/16 08/29/16 Ascorbate Calcium/Bioflavonoid 1 each PO DAILY tab 08/25/16 08/29/16 08/29/16 [Eva-C 1,000 Mg Tablet] Ascorbic Acid/Vitamin E/Biotin 1 each PO DAILY tab.chew 08/25/16 08/29/1608/29 [Hair Skin Nails-Biotin Gummies] Atorvastatin Calcium [Lipitor] 40 mg PO QD tab 08/25/16 08/29/16 08/28/16 Azelastine HCl 2 spray NS BID spray 08/25/16 08/29/16 08/29/16 Baclofen 10 mg PO DAILY tab 08/25/16 08/29/16 08/29/16 Calcium Citrate/Vitamin D3 1 each PO DAILY tab 08/25/16 08/29/16 08/29/16 [Calcium Citrate - Vit D3 Tab] Carboxymethylcell/Glycerin/Pf 1 each OP DAILY 08/25/16 08/29/16 08/29/16 [Refresh Optive Sensitive Drops] Citalopram Hydrobromide [Celexa] 20 mg PO QD tab 08/25/16 08/29/16 08/28/16 Clonidine HCl [Catapres] 0.1 mg PO BID tab 08/25/16 08/29/16 08/29/16 Docusate Sodium 100 mg PO TID cap 08/25/16 08/29/16 08/29/16 Doxazosin Mesylate [Cardura] 12 mg PO QD tab 08/25/16 08/29/16 08/29/16 Fish Oil/Dha/Epa [Fish Oil 1,200 1 each PO BID cap 08/25/16 08/29/16 08/29/16 Mg Fish Oil] Gabapentin [Neurontin] 600 mg PO BID tab 08/25/16 08/29/16 08/29/16 Hydrocodone/Acetaminophen [[place] 1 tab PO BID tab 08/25/16 08/29/16 08/29/16 7.5-325 Tablet] Levothyroxine Sodium [Synthroid] 125 mcg PO QD tab 08/25/16 08/29/16 08/29/16 Melatonin 10 mg PO QHS tab 08/25/16 08/29/16 08/28/16 Montelukast Sodium [Singulair] 10 mg PO QD tab 08/25/16 08/29/16 08/28/16 Multivitamin [Multi-Vitamin Daily] 1 each PO DAILY tab 08/25/16 08/29/16 Omeprazole [Prilosec] 20 mg PO QD cap 08/25/16 08/29/16 08/29/16 Polyethylene Glycol 3350 [Miralax] 1 packet PO DAILY packet 08/25/16 08/29/16 08/29/16 Propylene Glycol/Peg 400 [Systane 15 ml OP DAILY 08/25/16 08/29/16 08/29/16 Liquid Gel Eye Drops] Psyllium Husk (with Sugar) 3.4 gm PO DAILY PRN 08/25/16 08/29/16 Unknown [Metamucil Packet] Spironolactone [Aldactone] 100 mg PO QD tab 08/25/16 08/29/16 08/29/16 Ubidecarenone [Co Q-10] 200 mg PO DAILY cap 08/25/16 08/29/16 08/29/16 ] Allergies Allergy/AdvReac Type Severity Reaction Status Date / Time aspirin [From Aggrenox] Allergy Severe HEADACHE Verified 06/04/16 16:01 dipyridamole [From Aggrenox] Allergy Severe HEADACHE Verified 06/04/16 16:01 imipramine HCl Allergy Severe HYPERTENSION, Verified 06/04/16 16:01 [From Tofranil] INCREASED HEART RATE methyldopa [From Aldomet] Allergy Severe HEPATITIS Verified 06/04/16 16:01 methyldopate HCl Allergy Severe HEPATITIS Verified 06/04/16 16:01 [From Aldomet] Tetanus Vaccines and Toxoid Allergy Severe RASH, Verified 06/04/16 16:01 [Tetanus Vaccines & Toxoid] SWELLING, ITCHING clopidogrel bisulfate Allergy Intermediate BRUISING Verified 06/04/16 16:01 [From Plavix] lidocaine Allergy Intermediate FAINTING Verified 06/04/16 16:01 metaxalone [From Skelaxin] Allergy Intermediate ITCHING Verified 06/04/16 16:01 oxybutynin chloride Allergy Intermediate HEARTBURN Verified 06/04/16 16:01 [From Ditropan] paroxetine HCl [From Paxil] Allergy Intermediate DIARRHEA Verified 06/04/16 16: 01 potassium Allergy Mild NAUSEA Verified 06/04/16 16:01 carbamazepine [From Tegretol] AdvReac Intermediate HYPERTENSIO Verified 16:01 N Review of Systems Constitutional: Denies: Chills, Fever Eyes: Denies: Eye discharge ENT: Denies: Congestion Respiratory: Denies: Cough, Dyspnea Past Medical History - SOCIAL HISTORY Smoking Status: Former smoker Alcohol Use: None Drug Use: None - RESPIRATORY Hx Respiratory Disorders: Yes Hx Bronchitis: Yes (not in past couple of yrs) - CARDIOVASCULAR Hx Cardio Disorders: Yes Hx Irregular Heartbeat: Yes (A fib) Comment:: cardioversion needed x3 for a-fib - NEURO Hx Neuro Disorders: Yes Hx CVA: Yes - GI Hx GI Disorders: Yes Hx Reflux: Yes Hx Irritable Bowel: Yes Hx Ulcer: Yes Hx of Polyps: Yes Comment:: Microscopic colitis, Christiansen's Esophagus - Hx Genitourinary Disorders: Yes Hx Bladder Problem: Yes - ENDOCRINE Hx Endocrine Disorders: Yes Hx Diabetes: Yes Hx Thyroid Disease: Yes Comment:: 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 negative: Tonsillar erythema, Tonsillar exudate - Neck Neck exam: Normal inspection, Full ROM. negative: Tenderness - Respiratory Respiratory exam: Normal lung sounds bilaterally. negative: Respiratory distress - Cardiovascular Cardiovascular Exam: Irregular rhythm. negative: Regular rate, Normal rhythm - GI/Abdominal GI/Abdominal exam: Soft, Normal bowel sounds. negative: Tenderness - Extremities Extremities exam: Normal inspection, Full ROM, Normal capillary refill. negative: Tenderness - Neurological Neurological exam: Alert, Normal gait. negative: Abnormal gait, Motor sensory deficit Course - Reevaluation(s) Reevaluation #1: The patient is doing well. She denies any CP or SOB and her HR is 100-110. 08/29/16 21:31 Reevaluation #2: The patient is doing very well at this time. Her HR is around 110 and she has no complaints of pain or discomfort. 08/29/16 22:13 Reevaluation #3: I did discuss the case with Dr. Mays at [facility] and he does accept the patient in transfer. Dr. Mays would like the patient to have one dose of Lovenox SQ prior to transfer. 08/29/16 22:20 08/29/16 22:21 Reevaluation #4: I did discuss the risks of the blood thinner to the patient but since her head injury was almost 3 months ago, she did not require surgery and only had small punctate petechial hemorrhagic lesions in the brain the thought was the benefits outweigh the risks for the Lovenox. 08/29/16 22:58 Medical Decision Making - Data Complexity MDM Data: Labs Ordered and/or Reviewed, EKG Ordered and/or Reviewed - Lab Data Result diagrams: 08/29/16 20:50 08/29/16 20:50 - EKG Data -: EKG Interpreted by Me (Afib at 114 with LBBB. No change from old.) EKG: Unchanged From Previous Disposition Disposition: Transfer Clinical Impression: Atrial fibrillation with rapid ventricular response Disposition: Acute Care Hospital Transfer Transfer To: [facility] Reason For Transfer: Rapid A fib. Accepting Physician: Davon. Time Discussed w/Accepting Physician: 22:21 Condition: (2) Stable Forms: Patient Portal Access Time of Disposition: 22:21
[2016-08-29 21:38] LABS: BASO % 0.7 % (0-6); EOS % 3.6 % (0-6); GRAN % 55.6 % (47-80); HEMATOCRIT 37.6 % (35.0-47.0); HEMOGLOBIN 12.2 gm/dl (11.6-16.0); LYMPH % 28.7 % (16-45); MEAN CELL VOLUME 93.5 fl (81-97); MEAN CORPUSCULAR HEMOGLOBIN 30.3 pg (27-33); MEAN CORPUSCULAR HGB CONC 32.4 g/dl (32-36); MEAN PLATELET VOLUME 8.9 fl (7.4-10.4); MONO % 11.4 % (0-9); PLATELET COUNT 233 K/uL (130-400); RED BLOOD COUNT 4.02 M/uL (3.80-5.40); WHITE BLOOD COUNT W/O DIFF 5.3 K/uL (4.2-12.2)
[2016-08-29 21:50] LABS: ANION GAP 8.7 (7-16); BLOOD UREA NITROGEN 30 mg/dL (7-17); CARBON DIOXIDE 31.3 mmol/L (22-30); CREATINE PHOSPHOKINASE 34 U/L (30-135); CREATININE 1.7 mg/dL (0.52-1.04); EST GLOMERULAR FILTRATION RATE 31 ml/min; GLUCOSE,RANDOM 117 mg/dL (70-110)
[2016-08-29 21:51] LABS: INR 0.96; PARTIAL THROMBOPLASTIN TIME 25.1 SECONDS (24.5-39.1); PROTHROMBIN TIME (PATIENT) 10.9 SECONDS (9.5-12.1)
[2016-08-29 22:05] LABS: TROPONIN I < 0.012 ng/mL (0.00-0.034)
[2016-08-29] MEDS ORDERED: ENOXAPARIN 100 MG/ML SYR SQ ONE (22:17)
== END 2016-08-29 23:01 | disposition short-term general hospital (02) ==
LOC: ER 20:47
DX: I48.0 Paroxysmal atrial fibrillation (principal); E11.9 Type 2 diabetes mellitus without complications; Z86.73 Personal history of transient ischemic attack (TIA), and cerebral infarction without residual deficits; Z87.891 Personal history of nicotine dependence
CPT/HCPCS: 80048; 82550; 82553; 84484; 85025; 85610; 85730; 93005; 93010; 96372; 99285; J1650

== ENCOUNTER 2016-10-03 20:46 | Emergency (ER) | payer MEDICARE ==
--- NOTE | 2016-10-03 21:21 | Emergency Department Record ---
History of Present Illness - General Chief Complaint: Fall Injury Stated Complaint: FALL INJURY, HAS BEEN JERKING Time Seen by Provider: 10/03/16 21:16 Source: Patient Mode of Arrival: Ambulatory Limitations: No limitations - History of Present Illness Initial Comments: 80 yo female presents to ED with a CC of fall resulting from intermittent "jerking" that has occurred for approximately 9 months. Patient reports injury to the head during her fall, denies LOC and is no longer taking coumadin for her atrial fibrillation following a fall resulting he intra-cranial hemorrhage earlier this year. Patient reports that she has been evaluated by neurology as well as cardiology for her "jerking" movements but have been unable to pinpoint the etiology of her symptoms. Patient also reports undergoing an ablation earlier this month for her atrial fibrillation. MD Complaint: Fall Onset/Timin -: Hour(s) Fall From: Standing When Fall Occurred: 1 hour [employer] Fall Witnessed: Yes, by family Place Fall Occurred: Home Loss of Consciousness: None Prolonged Down Time?: No Symptoms Prior to Fall: Other ("jerking") Quality: Aching Associated Symptoms: Headache - [place] Coma Scale Eye Response: (4) Open spontaneously Motor Response: (6) Obeys commands Verbal Response: (5) Oriented Nick Total: 15 - Related Data Home Medications Medication Instructions Recorded Confirmed Last Taken Ascorbate Calcium/Bioflavonoid 1 each PO DAILY tab 08/25/16 10/03/16 10/03/16 [Eva-C 1,000 Mg Tablet] Ascorbic Acid/Vitamin E/Biotin 1 each PO DAILY tab.chew 08/25/16 10/03/1610/03 [Hair Skin Nails-Biotin Gummies] Atorvastatin Calcium [Lipitor] 40 mg PO QD tab 08/25/16 10/03/16 10/03/16 Azelastine HCl 2 spray NS BID spray 08/25/16 10/03/16 10/03/16 Calcium Citrate/Vitamin D3 1 each PO DAILY tab 08/25/16 10/03/16 10/03/16 [Calcium Citrate - Vit D3 Tab] Carboxymethylcell/Glycerin/Pf 1 each OP DAILY 08/25/16 10/03/16 10/03/16 [Refresh Optive Sensitive Drops] Docusate Sodium 100 mg PO TID cap 08/25/16 10/03/16 10/03/16 Fish Oil/Dha/Epa [Fish Oil 1,200 1 each PO BID cap 08/25/16 10/03/16 10/03/16 Mg Fish Oil] Gabapentin [Neurontin] 600 mg PO BID tab 08/25/16 10/03/16 10/03/16 Levothyroxine Sodium [Synthroid] 125 mcg PO QD tab 08/25/16 10/03/16 10/03/16 Melatonin 10 mg PO QHS tab 08/25/16 10/03/16 10/03/16 Montelukast Sodium [Singulair] 10 mg PO QD tab 08/25/16 10/03/16 10/03/16 Multivitamin [Multi-Vitamin Daily] 1 each PO DAILY tab 08/25/16 10/03/16 Omeprazole [Prilosec] 20 mg PO QD cap 08/25/16 10/03/16 10/03/16 Polyethylene Glycol 3350 [Miralax] 1 packet PO DAILY packet 08/25/16 10/03/16 10/03/16 Propylene Glycol/Peg 400 [Systane 15 ml OP DAILY 08/25/16 10/03/16 10/03/16 Liquid Gel Eye Drops] Psyllium Husk (with Sugar) 3.4 gm PO DAILY PRN 08/25/16 10/03/16 Unknown [Metamucil Packet] Ubidecarenone [Co Q-10] 200 mg PO DAILY cap 08/25/16 10/03/16 10/03/16 Lopressor 75 mg PO BID tab 09/19/16 10/03/16 10/03/16 Spironolactone 50 mg PO QD tab 09/19/16 10/03/16 10/03/16 Allergies Allergy/AdvReac Type Severity Reaction Status Date / Time aspirin [From Aggrenox] Allergy Severe HEADACHE Unverified 09/19/16 09:25 dipyridamole [From Aggrenox] Allergy Severe HEADACHE Unverified 09/19/16 09:25 imipramine HCl Allergy Severe HYPERTENSION, Unverified 09/19/16 09:25 [From Tofranil] INCREASED HEART RATE methyldopa [From Aldomet] Allergy Severe HEPATITIS Unverified 09/19/16 09:25 methyldopate HCl Allergy Severe HEPATITIS Unverified 09/19/16 09:25 [From Aldomet] Tetanus Vaccines and Toxoid Allergy Severe RASH, Unverified 09/19/16 09:25 [Tetanus Vaccines & Toxoid] SWELLING, ITCHING clopidogrel bisulfate Allergy Intermediate BRUISING Unverified 09/19/16 09:25 [From Plavix] lidocaine Allergy Intermediate FAINTING Unverified 09/19/16 09:25 metaxalone [From Skelaxin] Allergy Intermediate ITCHING Unverified 09/19/16 09: 25 oxybutynin chloride Allergy Intermediate HEARTBURN Unverified 09/19/16 09:25 [From Ditropan] paroxetine HCl [From Paxil] Allergy Intermediate DIARRHEA Unverified 09/19/16 09 :25 potassium Allergy Mild NAUSEA Unverified 09/19/16 09:25 carbamazepine [From Tegretol] AdvReac Intermediate HYPERTENSIO Unverified 09:25 N Review of Systems Constitutional: Denies: Chills, Fever, Malaise, Night sweats Eyes: Denies: Eye discharge, Eye pain ENT: Denies: Congestion, Ear pain, Epistaxis Respiratory: Denies: Cough, Dyspnea Cardiovascular: Denies: Chest pain, Dyspnea on exertion Endocrine: Denies: Fatigue, Heat or cold intolerance Gastrointestinal: Denies: Abdominal pain, Nausea, Vomiting Genitourinary: Denies: Incontinence, Retention Musculoskeletal: Denies: Arthralgia, Back pain, Gout, Joint swelling Skin: Denies: Bruising, Change in color Neurological: Reports: Headache. Denies: Abnormal gait, Confusion, Seizure Psychiatric: Denies: Anxiety Hematological/Lymphatic: Denies: Anemia, Blood Clots Past Medical History - SOCIAL HISTORY Smoking Status: Former smoker Drug Use: None - RESPIRATORY Hx Respiratory Disorders: Yes Hx Bronchitis: Yes (not in past couple of yrs) - CARDIOVASCULAR Hx Cardio Disorders: Yes Hx Irregular Heartbeat: Yes (A fib) Comment:: cardioversion needed x3 for a-fib - NEURO Hx Neuro Disorders: Yes Hx CVA: Yes - GI Hx GI Disorders: Yes Hx Reflux: Yes Hx Irritable Bowel: Yes Hx Ulcer: Yes Hx of Polyps: Yes Comment:: Microscopic colitis, Christiansen's Esophagus - Hx Genitourinary Disorders: Yes Hx Bladder Problem: Yes - ENDOCRINE Hx Endocrine Disorders: Yes Hx Diabetes: Yes Hx Thyroid Disease: Yes Comment:: 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 - MUSCULOSKELETAL Hx Musculoskeletal Disorders: Yes Hx Arthritis: Yes Hx Fibromyalgia: Yes Comment:: DJD - PSYCH Hx Psych Problems: No - HEMATOLOGY/ONCOLOGY Hx Hematology/Oncology Disorders: Yes Hx Anemia: Yes Family Medical History Hx Cancer: Mother, Brother/Sister Hx Heart Disease: Father, Brother/Sister Physical Exam - General General Appearance: Alert, Oriented x3, Cooperative, No acute distress, Other ( no resting tremor or "jerking" on examination) Limitations: No limitations - Head Head exam: Atraumatic, Normocephalic, Normal inspection Head exam detail: negative: Abrasion, Contusion, Tong's sign, General tenderness, Hematoma, Laceration - Eye Eye exam: Normal appearance. negative: Conjunctival injection, Periorbital swelling, Periorbital tenderness, Scleral icterus - ENT Ear exam: negative: Auricular hematoma, Auricular trauma Nasal Exam: negative: Active bleeding, Discharge, Dried blood, Foreign body Mouth exam: negative: Drooling, Laceration, Muffled voice, Tongue elevation - Neck Neck exam: Normal inspection. negative: Meningismus, Tenderness - Respiratory Respiratory exam: Normal lung sounds bilaterally. negative: Rales, Respiratory distress, Rhonchi, Stridor - Cardiovascular Cardiovascular Exam: Regular rate, Normal rhythm, Normal heart sounds - GI/Abdominal GI/Abdominal exam: Soft. negative: Rebound, Rigid, Tenderness - Rectal Rectal exam: Deferred - exam: Deferred - Extremities Extremities exam: Normal inspection. negative: Calf tenderness, Pedal edema, Tenderness - Back Back exam: Denies: CVA tenderness (R), CVA tenderness (L) - Neurological Neurological exam: Alert, Normal gait, Oriented X3 - Psychiatric Psychiatric exam: Normal affect, Normal mood - Skin Skin exam: Normal color. negative: Abrasion Type of lesion: negative: abrasion Course Vital Signs 10/03/16 21:01 Temperature 97.6 F Pulse Rate [ 75 Pulse Ox Probe] Respiratory 22 Rate Blood Pressure 145/79 [Left Arm] Pulse Ox 97 - Reevaluation(s) Reevaluation #1: 10/03/16 21:50 Labs reviewed, BUN 27, Creatinine 1.7 (at baseline compared with numerous previous laboratory values). Labs are otherwise grossly unremarkable for an acute process. Reevaluation #2: 10/03/16 22:14 CT Brain: Chronic deep-white matter changes, nothing acute. CT Cervical Spine: Low anterior cervical fusion, degenerative changes are present. Patient was updated on all results, appears to be resting comfortably, and appears stable for discharge at this time. Medical Decision Making - Lab Data Result diagrams: 10/03/16 21:15 10/03/16 21:15 Disposition Disposition: Discharge Clinical Impression: Minor head injury Qualifiers: Encounter type: initial encounter Qualified Code(s): S00.90XA - Unspecified superficial injury of unspecified part of head, initial encounter Disposition: Home, Self-Care Condition: (2) Stable Instructions: Head Injury (ED) Additional Instructions: Return to ED if your symptoms worsen or if you have any concerns. Follow-up with you family doctor in 3-5 days as directed. Forms: Patient Portal Access Time of Disposition: 22:25 Quality - Quality Measures Quality Measures: N/A - Blood Pressure Screening Blood Pressure Classification: Hypertensive Reading Systolic Measurement: 145 Diastolic Measurement: 79 Screening for High Blood Pressure: < First Hypertensive BP, F/U Documented > [ G8950] First Hypertensive Follow-up Interventions: Referral to alternative/primary care provider.
[2016-10-03 21:25] LABS: BASO % 0.7 % (0-6); EOS % 1.9 % (0-6); GRAN % 54.6 % (47-80); HEMATOCRIT 37.7 % (35.0-47.0); HEMOGLOBIN 12.3 gm/dl (11.6-16.0); LYMPH % 31.2 % (16-45); MEAN CELL VOLUME 95.4 fl (81-97); MEAN CORPUSCULAR HEMOGLOBIN 31.1 pg (27-33); MEAN CORPUSCULAR HGB CONC 32.6 g/dl (32-36); MEAN PLATELET VOLUME 8.5 fl (7.4-10.4); MONO % 11.6 % (0-9); PLATELET COUNT 282 K/uL (130-400); RED BLOOD COUNT 3.95 M/uL (3.80-5.40); RED CELL DISTRIBUTION WIDTH 14.8 % (11.5-14.5); WHITE BLOOD COUNT W/O DIFF 7.5 K/uL (4.2-12.2)
[2016-10-03 21:36] LABS: ALB/GLOB RATIO 1.6 (1.1-1.8); ALBUMIN 4.5 gm/dL (3.5-5.0); BILIRUBIN,TOTAL 0.67 mg/dL (0.2-1.3); CREATININE 1.7 mg/dL (0.52-1.04); TOTAL PROTEIN 7.4 gm/dL (6.3-8.2)
--- NOTE | 2016-10-06 14:27 | CT SCAN REPORT ---
EXAM: EMERGENCY HEAD CT HISTORY: PATIENT FELL WITH HEAD INJURY. TECHNIQUE: Axial CT scan of the head was performed without IV contrast. Comparison: Head CT 06/04/16. Encounter: Initial. FINDINGS: No definite acute intracranial hemorrhage identified today. No focal mass effect or midline shift apparent. Mild generalized atrophy as before. No definite acute infarct or intracranial mass lesion seen. No depressed calvarial fracture is evident. Some mild chronic appearing deep white matter changes are seen, nonspecific, but likely representing some chronic small vessel deep white matter ischemic disease. IMPRESSION: 1. NO DEFINITE ACUTE INTRACRANIAL HEMORRHAGE OR FOCAL MASS EFFECT EVIDENT. 2. SOME GENERALIZED ATROPHY WITH MILD CHRONIC APPEARING DEEP WHITE MATTER CHANGES. JOB NUMBER: [id number] [facility]
--- NOTE | 2016-10-06 14:32 | CT SCAN REPORT ---
EXAM: CERVICAL SPINE CT WITHOUT CONTRAST HISTORY: PATIENT FELL WITH HEAD INJURY. THREE PRIOR NECK SURGERIES. TECHNIQUE: Axial CT scan of the entire cervical spine was performed without IV contrast. Comparison: Cervical spine CT dated 06/04/16. Encounter: Initial. FINDINGS: No apical pneumothorax is evident. No definite acute fracture or prevertebral soft tissue swelling seen in the cervical spine. The patient is again seen to be postop anterior cervical fusion at the C5-C6 level. There is also postoperative change at the C6-C7 interspace representing a fusion at this interspace as well. Prominent degenerative change at the odontoid-anterior arch of C1 articulation. Multilevel facet joint arthropathy is present. IMPRESSION: 1. NO DEFINITE ACUTE FRACTURE OR PREVERTEBRAL SOFT TISSUE SWELLING SEEN IN THE CERVICAL SPINE. 2. LOW ANTERIOR CERVICAL FUSION. 3. MULTILEVEL DEGENERATIVE CHANGE IN THE CERVICAL SPINE. JOB NUMBER: [id number] [facility]
== END 2016-10-03 22:37 | disposition home or self-care (01) ==
LOC: ER 20:46
DX: S00.90XA Unspecified superficial injury of unspecified part of head, initial encounter (principal); I48.91 Unspecified atrial fibrillation; G25.3 Myoclonus; M50.30 Other cervical disc degeneration, unspecified cervical region; W19.XXXA Unspecified fall, initial encounter; Z91.81 History of falling; Z87.891 Personal history of nicotine dependence; Y92.009 Unspecified place in unspecified non-institutional (private) residence as the place of occurrence of the external cause
CPT/HCPCS: 70450; 72125; 80053; 85025; 99283; 99284

== ENCOUNTER 2016-10-19 08:14 | Emergency (ER) | payer MEDICARE ==
--- NOTE | 2016-10-19 09:01 | Emergency Department Record ---
History of Present Illness - General Chief Complaint: Fall Injury Stated Complaint: fall Time Seen by Provider: 10/19/16 08:45 Source: Patient, RN notes reviewed Mode of Arrival: Wheelchair - History of Present Illness Initial Comments: tripped and fell backward and hit the back of her head. No LOC, Patient has a problems with her muscles and they start to tremor and cramp and she lost her balance and fell and she has a neurology appointment next month. Lump on the occipital area of scalp and no other injuries. brain bleed in may from a fall and coumadin stoppped and she has a pacemaker and it is being paced 100%. History of atrial fib. only on asa now. Onset/Timin -: Hour(s) Fall From: Standing When Fall Occurred: 1-3 hours [employer]' Fall Witnessed: No Place Fall Occurred: Home Loss of Consciousness: None Prolonged Down Time?: No Symptoms Prior to Fall: Other Location: Head Context: History of frequent falls, Other Associated Symptoms: Unable to walk, Weakness - [place] Coma Scale Eye Response: (4) Open spontaneously Motor Response: (6) Obeys commands Verbal Response: (5) Oriented Nick Total: 15 - Related Data Home Medications Medication Instructions Recorded Confirmed Last Taken Ascorbate Calcium/Bioflavonoid 1 each PO DAILY tab 08/25/16 10/19/16 10/18/16 [Eva-C 1,000 Mg Tablet] Ascorbic Acid/Vitamin E/Biotin 1 each PO DAILY tab.chew 08/25/16 10/19/1610/18 [Hair Skin Nails-Biotin Gummies] Atorvastatin Calcium [Lipitor] 40 mg PO QD tab 08/25/16 10/19/16 10/18/16 Azelastine HCl 2 spray NS BID spray 08/25/16 10/19/16 10/18/16 Calcium Citrate/Vitamin D3 1 each PO DAILY tab 08/25/16 10/19/16 10/18/16 [Calcium Citrate - Vit D3 Tab] Carboxymethylcell/Glycerin/Pf 1 each OP DAILY 08/25/16 10/19/16 10/18/16 [Refresh Optive Sensitive Drops] Docusate Sodium 100 mg PO TID cap 08/25/16 10/19/16 10/18/16 Fish Oil/Dha/Epa [Fish Oil 1,200 1 each PO BID cap 08/25/16 10/19/1610/18/17 Mg Fish Oil] Gabapentin [Neurontin] 600 mg PO BID tab 08/25/16 10/19/16 10/19/16 Levothyroxine Sodium [Synthroid] 125 mcg PO QD tab 08/25/16 10/19/16 10/19/16 Melatonin 10 mg PO QHS tab 08/25/16 10/19/16 10/18/16 Montelukast Sodium [Singulair] 10 mg PO QD tab 08/25/16 10/19/16 10/18/16 Multivitamin [Multi-Vitamin Daily] 1 each PO DAILY tab 08/25/16 10/19/16 Omeprazole [Prilosec] 20 mg PO QD cap 08/25/16 10/19/16 10/18/16 Polyethylene Glycol 3350 [Miralax] 1 packet PO DAILY packet 08/25/16 10/19/16 10/18/16 Propylene Glycol/Peg 400 [Systane 15 ml OP DAILY 08/25/16 10/19/16 10/18/16 Liquid Gel Eye Drops] Psyllium Husk (with Sugar) 3.4 gm PO DAILY PRN 08/25/16 10/19/16 10/18/16 [Metamucil Packet] Ubidecarenone [Co Q-10] 200 mg PO DAILY cap 08/25/16 10/19/16 10/18/16 Lopressor 75 mg PO BID tab 09/19/16 10/19/16 10/19/16 Spironolactone 50 mg PO QD tab 09/19/16 10/19/16 10/19/16 Allergies Allergy/AdvReac Type Severity Reaction Status Date / Time aspirin [From Aggrenox] Allergy Severe HEADACHE Verified 10/19/16 08:39 dipyridamole [From Aggrenox] Allergy Severe HEADACHE Verified 10/19/16 08:39 imipramine HCl Allergy Severe HYPERTENSION, Verified 10/19/16 08:39 [From Tofranil] INCREASED HEART RATE methyldopa [From Aldomet] Allergy Severe HEPATITIS Verified 10/19/16 08:39 methyldopate HCl Allergy Severe HEPATITIS Verified 10/19/16 08:39 [From Aldomet] Tetanus Vaccines and Toxoid Allergy Severe RASH, Verified 10/19/16 08:39 [Tetanus Vaccines & Toxoid] SWELLING, ITCHING clopidogrel bisulfate Allergy Intermediate BRUISING Verified 10/19/16 08:39 [From Plavix] lidocaine Allergy Intermediate FAINTING Verified 10/19/16 08:39 metaxalone [From Skelaxin] Allergy Intermediate ITCHING Verified 10/19/16 08:39 oxybutynin chloride Allergy Intermediate HEARTBURN Verified 10/19/16 08:39 [From Ditropan] paroxetine HCl [From Paxil] Allergy Intermediate DIARRHEA Verified 10/19/16 08: 39 potassium Allergy Mild NAUSEA Verified 10/19/16 08:39 carbamazepine [From Tegretol] AdvReac Intermediate HYPERTENSIO Verified 08:39 N Travel Screening - Travel/Exposure Within Last 30 Days Have you traveled within the last 30 days?: No - Travel/Exposure Within Last Year Have you traveled outside the [place] in the last year?: No - Additonal Travel Details Have you been exposed to anyone with a communicable illness?: No - Travel Symptoms Symptom Screening: None Review of Systems Reviewed: No additional complaints except as noted below Constitutional: Reports: As per HPI. Denies: Chills, Fever, Malaise, Night sweats, Weakness, Weight change Eyes: Reports: As per HPI. Denies: Eye discharge, Eye pain, Photophobia, Vision change ENT: Reports: As per HPI. Denies: Congestion, Dental pain, Ear pain, Epistaxis , Hearing loss, Throat pain Respiratory: Reports: As per HPI. Denies: Cough, Dyspnea, Hemoptysis, Stridor, Wheezes Cardiovascular: Reports: As per HPI. Denies: Arrhythmia, Chest pain, Dyspnea on exertion, Edema, Murmurs, Orthopnea, Palpitations, Paroxysmal nocturnal dyspnea, Rheumatic Fever, Syncope Endocrine: Reports: As per HPI. Denies: Fatigue, Heat or cold intolerance, Polydipsia, Polyuria Gastrointestinal: Reports: As per HPI. Denies: Abdominal pain, Constipation, Diarrhea, Hematemesis, Hematochezia, Melena, Nausea, Vomiting Genitourinary: Reports: As per HPI. Denies: Abnormal menses, Discharge, Dyspareunia, Dysuria, Frequency, Hematuria, Incontinence, Retention, Urgency Musculoskeletal: Reports: As per HPI. Denies: Arthralgia, Back pain, Gout, Joint swelling, Myalgia, Neck pain Skin: Reports: As per HPI. Denies: Bruising, Change in color, Change in hair/ nails, Lesions, Pruritus, Rash Neurological: Reports: As per HPI. Denies: Abnormal gait, Confusion, Headache, Numbness, Paresthesias, Seizure, Tingling, Tremors, Vertigo, Weakness Psychiatric: Reports: As per HPI. Denies: Anxiety, Auditory hallucinations, Depression, Homicidal thoughts, Suicidal thoughts, Visual hallucinations Hematological/Lymphatic: Reports: As per HPI. Denies: Anemia, Blood Clots, Easy bleeding, Easy bruising, Swollen glands Past Medical History - SOCIAL HISTORY Smoking Status: Former smoker Alcohol Use: None Drug Use: None - RESPIRATORY Hx Respiratory Disorders: Yes Hx Bronchitis: Yes (not in past couple of yrs) - CARDIOVASCULAR Hx Cardio Disorders: Yes Hx Irregular Heartbeat: Yes (A fib) Comment:: cardioversion needed x3 for a-fib, also had ablation. - NEURO Hx Neuro Disorders: Yes Hx CVA: Yes - GI Hx GI Disorders: Yes Hx Reflux: Yes Hx Irritable Bowel: Yes Hx Ulcer: Yes Hx of Polyps: Yes Comment:: Microscopic colitis, Christiansen's Esophagus - Hx Genitourinary Disorders: Yes Hx Bladder Problem: Yes - ENDOCRINE Hx Endocrine Disorders: Yes Hx Diabetes: Yes Hx Thyroid Disease: Yes Comment:: 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 - MUSCULOSKELETAL Hx Musculoskeletal Disorders: Yes Hx Arthritis: Yes Hx Fibromyalgia: Yes Comment:: DJD - PSYCH Hx Psych Problems: No - HEMATOLOGY/ONCOLOGY Hx Hematology/Oncology Disorders: Yes Hx Anemia: Yes Family Medical History Any Significant Family History?: No Hx Cancer: Mother, Brother/Sister Hx Heart Disease: Father, Brother/Sister Physical Exam - General General Appearance: Alert, Oriented x3, Cooperative, No acute distress - Head Head exam: Normal inspection - Eye Eye exam: Normal appearance, PERRL Pupils: Normal accommodation - ENT ENT exam: Normal exam, Mucous membranes moist, Normal external ear exam, Normal orophraynx, TM's normal bilaterally Ear exam: Normal external inspection. negative: External canal tenderness Nasal Exam: Normal inspection. negative: Discharge, Sinus tenderness Mouth exam: Normal external inspection, Tongue normal Teeth exam: Normal inspection. negative: Dental caries Throat exam: Normal inspection. negative: Tonsillar erythema, Tonsillar exudate - Neck Neck exam: Normal inspection, Full ROM. negative: Tenderness - Respiratory Respiratory exam: Normal lung sounds bilaterally. negative: Respiratory distress - Cardiovascular Cardiovascular Exam: Regular rate, Normal rhythm, Normal heart sounds - GI/Abdominal GI/Abdominal exam: Soft, Normal bowel sounds. negative: Tenderness - Rectal Rectal exam: Deferred - exam: Deferred - Extremities Extremities exam: Normal inspection, Full ROM, Normal capillary refill. negative: Tenderness - Back Back exam: Reports: Normal inspection, Full ROM. Denies: Muscle spasm, Rash noted, Tenderness - Neurological Neurological exam: Alert, Normal gait, Oriented X3, Reflexes normal - Psychiatric Psychiatric exam: Normal affect, Normal mood - Skin Skin exam: Dry, Intact, Normal color, Warm Course Vital Signs 10/19/16 10/19/16 08:20 08:40 Temperature 97.7 F Pulse Rate [ 77 Pulse Ox Probe] Respiratory 16 Rate Blood Pressure 128/72 [Left Arm] Pulse Ox 95 Medical Decision Making - Data Complexity MDM Data: X-Ray Ordered and/or Reviewed (CT head scalp hematoma,brain neg, Cspine neg) Disposition Clinical Impression: Contusion of head Qualifiers: Encounter type: initial encounter Contusion of head detail: scalp Qualified Code(s): S00.03XA - Contusion of scalp, initial encounter Disposition: Home, Self-Care Condition: (1) Good Instructions: Fall Prevention for Older Adults (ED), Head Injury (ED) Additional Instructions: follow up with Dr. Pearl in 4 days Forms: Patient Portal Access Time of Disposition: 10:20 Quality - Quality Measures Quality Measures: Minor Blunt Head Trauma - Nick Coma Scale Nick Coma Scale: Nick Coma Scale Eye Response: (4) Open spontaneously Motor Response: (6) Obeys commands Verbal Response: (5) Oriented Gill Total: 15 - Blunt Head Trauma - Adult Quality Measure: Measure #415: Utilization of CT for Minor Blunt Head Trauma Was CT ordered: Yes Does Patient Have Any of the Following: Taking Antiplatelet Med Patient Presented Within 24 Hours of Injury: Yes Gill Score: [address] for Minor Blunt Head Trauma: < CT Done, Appropriate Indication > [G9529] Additional Inclusion Criteria: Within 24hrs (AND) GCS of 15 (AND) CT ordered. [ G9530] Indications For CT: Severe Headache, Age 65 Years and Older, Taking Anticoagulant Medication - Blood Pressure Screening Does Patient Have Any of the Following: No, Active Dx of HTN Blood Pressure Classification: Pre-Hypertensive BP Reading Systolic Measurement: 133 Diastolic Measurement: 74 Screening for High Blood Pressure: < Pre-Hypertensive BP, F/U Documented > [ G8950] Pre-Hypertensive Follow-up Interventions: Referral to alternative/primary care provider.
--- NOTE | 2016-10-21 09:21 | CT SCAN REPORT ---
EXAM: CT SCAN OF THE HEAD HISTORY: PATIENT HAS A HISTORY OF FALL. TECHNIQUE: Serial axial CT scan of the head was performed at 2.5 mm intervals from the base of the skull to the apex without the use of intravenous contrast. Sagittal and coronal reconstructions are provided. Comparison CT scan dated is provided. FINDINGS: Moderate generalized parenchymal volume loss is noted. There is no mass or mass effect. Within the left centrum semiovale, there is a small focus of decreased attenuation which is unchanged with respect to the prior examination suggesting chronic small vessel ischemic changes. There is no CT evidence of intra or extraaxial fluid collection to suggest bleeding. Small left parietal scalp hematoma is noted. Bone windows demonstrate no CT evidence of a fracture or dislocation of the skull. The paranasal sinuses are unremarkable. IMPRESSION: A SMALL LEFT PARIETAL SCALP HEMATOMA IS NOTED WITHOUT CT EVIDENCE OF AN ACUTE INTRACRANIAL PROCESS. JOB NUMBER: [id number] [facility]
--- NOTE | 2016-10-21 09:27 | CT SCAN REPORT ---
EXAM: CT SCAN OF THE CERVICAL SPINE HISTORY: PATIENT HAS A HISTORY OF FALL. TECHNIQUE: Serial axial CT scan of the cervical spine was performed at 2.5 mm intervals from the base of the skull to the thoracic inlet without the use of intravenous contrast. Sagittal and coronal reconstructions are provided. Comparison CT scan dated 10/03/16 is provided. FINDINGS: The vertebral body height, contour, and AP alignment of the cervical spine is within normal limits. Anterior cervical plate and screw fixation of the C5 and C6 vertebral bodies is again noted. No hardware failure is noted. There is no CT evidence of a fracture or dislocation of the cervical spine. The prevertebral soft tissue and parapharyngeal fat are unremarkable. The visualized parotid and submandibular glands are unremarkable. The thyroid gland is not clearly visualized. There is retropharyngeal deviation of the bilateral common carotid arteries. Multilevel facet arthropathy is noted. The airways are patent. The lung windows of the lung apices are clear. IMPRESSION: STABLE CT APPEARANCE OF THE CERVICAL SPINE WITH RESPECT TO THE PRIOR EXAMINATION DISCUSSED ABOVE. JOB NUMBER: [id number] [facility]
== END 2016-10-19 11:04 | disposition home or self-care (01) ==
LOC: ER 08:14
DX: S00.03XA Contusion of scalp, initial encounter (principal); W01.0XXA Fall on same level from slipping, tripping and stumbling without subsequent striking against object, initial encounter; Z91.81 History of falling; I48.91 Unspecified atrial fibrillation; Z95.0 Presence of cardiac pacemaker; Y92.009 Unspecified place in unspecified non-institutional (private) residence as the place of occurrence of the external cause
CPT/HCPCS: 70450; 72125; 93005; 93010; 99284

== ENCOUNTER 2016-12-07 16:19 | Observation (INO) | payer MEDICARE ==
--- NOTE | 2016-12-07 16:26 | Emergency Department Record ---
History of Present Illness - General Chief Complaint: Chest Pain Stated Complaint: CHEST PAIN Source: Patient Mode of Arrival: Ambulatory Limitations: No limitations - History of Present Illness Initial Comments: 81 yo female presents left chest burning for the last four days. The discomfort is now radiating to the left shoulder. She does have some shortness of breath but also states she is always somewhat short of breath. The patient has a history of aortic stenosis, a pacemaker. The burning pain is in the left upper chest near the pacer site but she denies that it hurts to touch. No abnormal warmth or redness. She has lower extremity edema that she states is increased recently. She is being evaluated for surgery for her . MD Complaint: Chest pain -: Days(s) (4) Pain Location: Left chest Pain Radiation: LUE Severity: Moderate Quality: Other (Burning) Consistency: Intermittent Improves With: Nothing Worsens With: Nothing - Related Data Allergies Allergy/AdvReac Type Severity Reaction Status Date / Time aspirin [From Aggrenox] Allergy Severe HEADACHE Verified 12/07/16 16:21 dipyridamole [From Aggrenox] Allergy Severe HEADACHE Verified 12/07/16 16:21 imipramine HCl Allergy Severe HYPERTENSION, Verified 12/07/16 16:21 [From Tofranil] INCREASED HEART RATE methyldopa [From Aldomet] Allergy Severe HEPATITIS Verified 12/07/16 16:21 methyldopate HCl Allergy Severe HEPATITIS Verified 12/07/16 16:21 [From Aldomet] Tetanus Vaccines and Toxoid Allergy Severe RASH, Verified 12/07/16 16:21 [Tetanus Vaccines & Toxoid] SWELLING, ITCHING clopidogrel bisulfate Allergy Intermediate BRUISING Verified 12/07/16 16:21 [From Plavix] lidocaine Allergy Intermediate FAINTING Verified 12/07/16 16:21 metaxalone [From Skelaxin] Allergy Intermediate ITCHING Verified 12/07/16 16:21 oxybutynin chloride Allergy Intermediate HEARTBURN Verified 12/07/16 16:21 [From Ditropan] paroxetine HCl [From Paxil] Allergy Intermediate DIARRHEA Verified 10/19/16 08: 39 potassium Allergy Mild NAUSEA Verified 10/19/16 08:39 carbamazepine [From Tegretol] AdvReac Intermediate HYPERTENSIO Verified 08:39 N Review of Systems Constitutional: Denies: Chills, Fever, Malaise, Weakness Eyes: Denies: Eye discharge ENT: Denies: Congestion, Throat pain Respiratory: Reports: Dyspnea. Denies: Cough, Hemoptysis, Stridor, Wheezes Cardiovascular: Reports: Chest pain. Denies: Palpitations, Syncope Endocrine: Denies: Fatigue, Polydipsia, Polyuria Gastrointestinal: Denies: Abdominal pain, Diarrhea, Nausea, Vomiting Genitourinary: Denies: Dysuria, Urgency Musculoskeletal: Denies: Arthralgia, Back pain, Joint swelling, Myalgia, Neck pain Skin: Denies: Bruising, Change in color, Rash Neurological: Denies: Headache, Numbness, Weakness Psychiatric: Denies: Anxiety Hematological/Lymphatic: Denies: Blood Clots, Easy bleeding, Easy bruising, Swollen glands Past Medical History - SOCIAL HISTORY Smoking Status: Former smoker Drug Use: None - RESPIRATORY Hx Respiratory Disorders: Yes Hx Bronchitis: Yes (not in past couple of yrs) - CARDIOVASCULAR Hx Cardio Disorders: Yes Hx Irregular Heartbeat: Yes (A fib) Comment:: cardioversion needed x3 for a-fib, also had ablation. - NEURO Hx Neuro Disorders: Yes Hx CVA: Yes - GI Hx GI Disorders: Yes Hx Reflux: Yes Hx Irritable Bowel: Yes Hx Ulcer: Yes Hx of Polyps: Yes Comment:: Microscopic colitis, Christiansen's Esophagus - Hx Genitourinary Disorders: Yes Hx Bladder Problem: Yes - ENDOCRINE Hx Endocrine Disorders: Yes Hx Diabetes: Yes Hx Thyroid Disease: Yes Comment:: 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 - MUSCULOSKELETAL Hx Musculoskeletal Disorders: Yes Hx Arthritis: Yes Hx Fibromyalgia: Yes Comment:: DJD - PSYCH Hx Psych Problems: No - HEMATOLOGY/ONCOLOGY Hx Hematology/Oncology Disorders: Yes Hx Anemia: Yes Family Medical History Hx Cancer: Mother, Brother/Sister Hx Heart Disease: Father, Brother/Sister Physical Exam - General General Appearance: Alert, Oriented x3, Cooperative, No acute distress Limitations: No limitations - Head Head exam: Atraumatic, Normocephalic, Normal inspection - Eye Eye exam: negative: Normal appearance, Conjunctival injection, Periorbital swelling - ENT ENT exam: Normal exam. negative: Mucous membranes moist Ear exam: Normal external inspection Nasal Exam: Normal inspection Mouth exam: Normal external inspection - Neck Neck exam: Normal inspection - Respiratory Respiratory exam: Decreased breath sounds. negative: Rhonchi, Stridor, Wheezes - Cardiovascular Cardiovascular Exam: Regular rate, Normal rhythm, Normal heart sounds Peripheral Pulses: 2+: Radial (R), Radial (L) - GI/Abdominal GI/Abdominal exam: Soft. negative: Tenderness - Rectal Rectal exam: Deferred - exam: Deferred - Extremities Extremities exam: Normal inspection - Back Back exam: Reports: Normal inspection. Denies: CVA tenderness (R), CVA tenderness (L) - Neurological Neurological exam: Alert, Normal gait, Oriented X3 - Psychiatric Psychiatric exam: Normal affect, Normal mood - Skin Skin exam: Dry, Intact, Normal color, Warm Course - Reevaluation(s) Reevaluation #1: 12/07/16 16:31 EKG rate 75, ventricular paced, capture, no dropped beats, no changes from the prior on 10/19/16 The labs were reviewed No acute changes of the CBC or CMP The Troponin is normal The BNP is elevated at 1513 The CXR was reviewed. 12/07/16 17:27 Final CXR read is cardiomegaly, no acute process or infiltrate. 12/07/16 18:09 I RILEY Law regarding admission for serial enzymes, monitor and cardiology consultation as needed 12/07/16 18:28 Medical Decision Making - Lab Data Result diagrams: 12/07/16 16:20 12/07/16 16:20 Disposition Disposition: Admit Clinical Impression: Chest pain Qualifiers: Chest pain type: unspecified Qualified Code(s): R07.9 - Chest pain, unspecified Dyspnea Qualifiers: Dyspnea type: unspecified Qualified Code(s): R06.00 - Dyspnea, unspecified Disposition: Still a Patient at [facility] Decision to Admit: Admit from ER Decision to Admit Date: 12/07/16 Decision to Admit Time: 18:29 Condition: (2) Stable Forms: Patient Portal Access Time of Disposition: 18:29 Quality - Quality Measures Quality Measures: N/A - Blood Pressure Screening Does Patient Have Any of the Following: No Blood Pressure Classification: Hypertensive Reading Systolic Measurement: 155 Diastolic Measurement: 100 Screening for High Blood Pressure: < Pre-Hypertensive BP, F/U Documented > [ [id number]] Pre-Hypertensive Follow-up Interventions: Referral to alternative/primary care provider.
[2016-12-07 16:31] LABS: BASO % 0.5 % (0-6); EOS % 2.6 % (0-6); GRAN % 63.6 % (47-80); HEMATOCRIT 41.9 % (35.0-47.0); HEMOGLOBIN 13.8 gm/dl (11.6-16.0); MEAN CELL VOLUME 93.5 fl (81-97); MEAN CORPUSCULAR HEMOGLOBIN 30.8 pg (27-33); MEAN CORPUSCULAR HGB CONC 32.9 g/dl (32-36); MEAN PLATELET VOLUME 8.8 fl (7.4-10.4); MONO % 9.3 % (0-9); PLATELET COUNT 198 K/uL (130-400); RED BLOOD COUNT 4.48 M/uL (3.80-5.40); RED CELL DISTRIBUTION WIDTH 12.5 % (11.5-14.5); WHITE BLOOD COUNT W/O DIFF 6.5 K/uL (4.2-12.2)
[2016-12-07 16:45] LABS: INR 1.05; PROTHROMBIN TIME (PATIENT) 11.4 SECONDS (9.5-12.1)
[2016-12-07 16:46] LABS: PARTIAL THROMBOPLASTIN TIME 25.5 SECONDS (24.5-39.1)
[2016-12-07 17:01] LABS: ALB/GLOB RATIO 1.6 (1.1-1.8); ALBUMIN 4.4 g/dL (4.0-5.0); ALKALINE PHOSPHATASE 77 U/L (35-104); ALT/SGPT 21 U/L (<33); AST/SGOT 20 U/L (10.0-35.0); BLOOD UREA NITROGEN 21 mg/dL (8-23); CKMB 2.4 ng/mL (<3.77); CREATINE PHOSPHOKINASE 32 U/L (26-192); CREATININE 1.1 mg/dL (0.5-0.9); EST GLOMERULAR FILTRATION RATE 51 mL/min; GLUCOSE,RANDOM 115 mg/dL (74-109); TOTAL PROTEIN 7.2 g/dL (6.6-8.7)
[2016-12-07 17:03] LABS: TROPONIN I < 0.30 ng/mL (0.00-0.300)
[2016-12-07] MEDS ORDERED: ACETAMINOPHEN 500 MG TABLET PO PRN (18:29)
[2016-12-07] MEDS ORDERED: CITALOPRAM 20 MG TABLET PO SCH (18:45)
[2016-12-07] MEDS ORDERED: SPIRONOLACTONE 25 MG TAB PO SCH (19:00)
[2016-12-07] MEDS: GABAPENTIN 300 MG CAPSULE PO SCH (21:31)
[2016-12-07] MEDS ORDERED: BACLOFEN 10 MG TABLET PO SCH (22:00)
[2016-12-07] MEDS ORDERED: MELATONIN 5 MG TABLET PO SCH (22:00)
[2016-12-07] MEDS ORDERED: METOPROLOL TART 25 MG TABLET PO SCH (22:00)
[2016-12-07] MEDS ORDERED: COLCHICINE 0.6 MG TABLET PO SCH (22:42)
[2016-12-07] MEDS ORDERED: AMLODIPINE BESYLATE 5MG TAB PO SCH (22:45)
[2016-12-08] MEDS ORDERED: HYDROCODONE/APAP 7.5/325MG TABLET PO ONE (05:11)
[2016-12-08] MEDS ORDERED: LEVOTHYROXINE SODIUM 125 MCG TABLET PO SCH (07:00)
[2016-12-08] MEDS ORDERED: PANTOPRAZOLE SODIUM 40 MG TABLET PO SCH (07:00)
--- NOTE | 2016-12-08 07:40 | RADIOLOGY REPORT ---
EXAM: CHEST, TWO VIEWS HISTORY: DEFIBRILLATOR PLACED THREE MONTHS AGO, PAIN NEAR THAT AREA STARTING TODAY. TECHNIQUE: PA and lateral views of the chest were obtained. Comparison: Two view chest 05/26/16. FINDINGS: Cardiomegaly. Since the prior exam a dual lead pacemaker has been placed with the two electrode leads extending into the region of the right ventricle and probably the coronary sinus. No pneumothorax evident. Nodular density overlying the right anterior second intercostal space may just be a snap artifact although follow-up PA view without any overlying clothing containing a snap would be useful to confirm. Apparent low anterior cervical fusion device partially seen. No acute infiltrate is seen and no pleural effusion or pneumothorax evident. Somewhat exaggerated kyphosis again seen with hypertrophic spurring in the spine similar to before. IMPRESSION: 1. MILD CARDIOMEGALY. 2. PACEMAKER PLACED SINCE THE PRIOR STUDY WITH NO PNEUMOTHORAX EVIDENT. 3. 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 4. POSTOP CHANGE LOWER CERVICAL SPINE BEFORE. 5. POSSIBLE SNAP ARTIFACT ABOUT 1 CM IN SIZE OVERLYING THE RIGHT ANTERIOR SECOND INTERCOSTAL SPACE. THIS COULD BE CONFIRMED WITH A REPEAT PA VIEW WITHOUT ANY OVERLYING CLOTHING ARTIFACT. JOB NUMBER: [id number] MTDD
[2016-12-08] MEDS ORDERED: HYDROCODONE/APAP 7.5/325MG TABLET PO PRN (08:11)
[2016-12-08] MEDS ORDERED: COLCHICINE 0.6 MG TABLET PO SCH (09:00)
[2016-12-08] MEDS ORDERED: BACLOFEN 10 MG TABLET PO PRN (09:00)
[2016-12-08] MEDS ORDERED: METOPROLOL TART 50 MG TABLET PO SCH (10:00)
[2016-12-08] MEDS ORDERED: PROPYLENE GLYCOL OP SCH (10:00)
[2016-12-08] MEDS ORDERED: [UNRECOGNIZED DRUG - OTHER] OP SCH (10:00)
[2016-12-08] MEDS ORDERED: PEG OP SCH (10:00)
[2016-12-08] MEDS ORDERED: GLYCERIN OP SCH (10:00)
[2016-12-08] MEDS ORDERED: UBIDECARENONE 200 MG PO SCH (10:00)
[2016-12-08] MEDS ORDERED: SPIRONOLACTONE 25 MG TAB PO SCH (10:00)
[2016-12-08] MEDS ORDERED: CARBOXYMETHYLCELLULOSE OP SCH (10:00)
[2016-12-08] MEDS: GABAPENTIN 300 MG CAPSULE PO SCH (10:28)
[2016-12-08] MEDS ORDERED: PATIENT OWN MED: GABAPENTIN 600 MG PO SCH (10:30)
[2016-12-08] MEDS ORDERED: SPIRONOLACTONE 50 MG PO SCH (10:30)
[2016-12-08] MEDS ORDERED: METOPROLOL TARTRATE 100 MG PO SCH (10:45)
--- NOTE | 2016-12-08 15:10 | Discharge Note ---
VTE H&P Assessment - Risk for VTE Risk for VTE: Yes Risk Level: Low Risk Assessment Date: 12/08/16 Risk Assessment Time: 15:03 VTE Orders Placed or Will Be Placed: No VTE Reason for No Prophylaxis: Not Indicated (Going home) Discharge Medications - Discharge Medications Home Medications: Ambulatory Orders Ascorbate Calcium/Bioflavonoid [Eva-C 1,000 mg Tablet] 1 each PO DAILY tab [Last Taken 12/07/16] Ascorbic Acid/Vitamin E/Biotin [Hair Skin Nails-Biotin Gummies] 1 each PO DAILY tab.chew 08/25/16 [Last Taken 12/07/16] Atorvastatin Calcium [Lipitor] 40 mg PO QHS tab 08/25/16 [Last Taken 12/07/16] Azelastine HCl 2 spray NS BID spray 08/25/16 [Last Taken 12/07/16] Calcium Citrate/Vitamin D3 [Calcium Citrate - Vit D3 Tab] 1 each PO DAILY tab 08/25/16 [Last Taken 12/07/16] Carboxymethylcell/Glycerin/Pf [Refresh Optive Sensitive Drops] 1 each OP DAILY 08/25/16 [Last Taken 12/07/16] Docusate Sodium 100 mg PO TID cap 08/25/16 [Last Taken 12/07/16] Fish Oil/Dha/Epa [Fish Oil 1,200 mg Fish Oil] 1 each PO BID cap 08/25/16 [Last Taken 12/07/16] Gabapentin [Neurontin] 600 mg PO BID tab 08/25/16 [Last Taken 12/07/16] Levothyroxine Sodium [Synthroid] 125 mcg PO DAILYTHY tab 08/25/16 [Last Taken 12/07/16] Melatonin 10 mg PO QHS tab 08/25/16 [Last Taken 12/07/16] Multivitamin [Multi-Vitamin Daily] 1 each PO DAILY tab 08/25/16 [Last Taken 03/25] Omeprazole [Prilosec] 20 mg PO DAILYAC cap 08/25/16 [Last Taken 12/07/16] Polyethylene Glycol 3350 [Miralax] 1 packet PO DAILY packet 08/25/16 [Last Taken 12/07/16] Propylene Glycol/Peg 400 [Systane Liquid Gel Eye Drops] 15 ml OP DAILY 08/25/16 [Last Taken 12/07/16] Psyllium Husk (with Sugar) [Metamucil Packet] 3.4 gm PO DAILY PRN 08/25/16 [ Last Taken 12/07/16] Ubidecarenone [Co Q-10] 200 mg PO DAILY cap 08/25/16 [Last Taken 12/07/16] Lopressor 100 mg PO BID tab 09/19/16 [Last Taken 12/07/16] Spironolactone 50 mg PO DAILY tab 09/19/16 [Last Taken 12/07/16] Amlodipine Besylate [Norvasc] 2.5 mg PO QHS 12/07/16 [Last Taken 12/07/16] Colchicine [Colcrys] 0.6 mg PO BIDWM 12/07/16 [Last Taken 12/07/16 0.6mg] Aspirin Enteric-Coated [Ecotrin (EC)] 81 mg PO QHS 12/08/16 [Last Taken Unknown] Baclofen 10 mg PO BID PRN 12/08/16 [Last Taken Unknown] Citalopram Hydrobromide [Celexa] 20 mg PO QHS 12/08/16 [Last Taken Unknown] Discharge Note - Date Date of Discharge Note: 12/08/16 Condition: (2) Stable Additional Instructions: follow up with Belinda Waggoner in 7 days heat to chest twice a day for 20 minutes norco 7.5 mg for chest wall pain and she already has that at home follow up with dr. Dooley in 1-2 weeks follow up with Dr. Robertson to check her pacemaker as soon as possible in the next 2- 3 weeks Discuss[address] case with Dr. Macdonald after his consult Forms: Patient Portal Access Activity at Discharge: Increase Activity as Tolerated Diet at Discharge: Low Salt Diet
[2016-12-08] MEDS ORDERED: COLCHICINE 0.6 MG PO SCH (17:30)
[2016-12-08] MEDS ORDERED: CITALOPRAM 20 MG TABLET PO SCH (22:00)
[2016-12-08] MEDS ORDERED: PATIENT OWN MED: ATORVASTATIN 40 MG PO SCH (22:00)
[2016-12-08] MEDS ORDERED: AMLODIPINE 2.5 MG PO SCH (22:00)
--- NOTE | 2016-12-09 06:49 | Discharge Summary ---
DATE OF DISCHARGE: 12/08/2016. DISCHARGE DIAGNOSIS: 1. CHEST PAIN. 2. CHEST WALL PAIN, MOSTLY LOCATED AROUND THE PACEMAKER BATTERY SITE. 3. PACEMAKER. 4. HISTORY OF MAYBE A SMALL PERICARDIAL EFFUSION, AND RECENTLY STARTED ON COLCRYS. 5. HYPERTENSION. 6. HYPOTHYROIDISM. 7. HYPERCHOLESTEROLEMIA. 8. GASTROESOPHAGEAL REFLUX DISEASE. 9. LOW BACK PAIN. ATTENDING PHYSICIAN: Paulino Law D.O. REASON FOR HOSPITALIZATION: This 81-year-old female presented to the emergency department with a left-sided chest pain for a week, mostly located around the site of her battery for the pacemaker in the left side of the chest. She said there is some discomfort into the left arm and left hand which kind of go numb. However, this is better at this time. She was evaluated by Dr. Holly and was admitted to the hospital for serial EKGs and serial cardiac enzymes. She admitted to having some dyspnea. She has a history of aortic stenosis and a pacemaker. She also has a history of atrial fibrillation. Her cardiac rhythm shows 100% paced. SIGNIFICANT FINDINGS FROM EXAMINATION: Cardiac enzymes times two are negative for abnormal cardiac enzymes. CKMB was negative. Troponin was negative. BUN was 21, creatinine was 1.1. Pro natriuretic peptide was 1,513. DIAGNOSTIC STUDIES: Chest x-ray showed mild cardiomegaly. Pacemaker has been placed since the prior study. No pneumothorax. Exacerbated kyphosis. Postoperative changes of the lower cervical spine. Possible Snap artifact 1.0 cm in size overlying the right anterior second intercostal space. He is recommending, if there is any concern, a repeat chest x-ray without the Snap in place, or clothing artifact. EKG shows paced rhythm 100%. THERAPY PROVIDED: She had cardiac monitoring, consultation. She has had no pain since the emergency department consultation. Dr. Macdoanld stated she had coronary artery disease, arrhythmia. Her pacer is working 100% of the time. She has chest wall pain. DISCHARGE INSTRUCTIONS: Dr. Macdonald's recommendation is to follow up with Dr. Willard, follow up with Belinda Waggoner, follow up with Dr. Robertson and have a pacemaker re-evaluation. Use Sequim or some sort of pain medication for anterior chest wall pain. Since she already has Sequim 7.5 mg I have recommended that she use that twice a day. Use heat to her chest twice a day. Continue her home medications of Aldactone 100 mg once a day, Colcrys 0.6 mg twice a day, Celexa 20 mg daily, Lopressor 100 mg b.i.d., Synthroid 125 micrograms six days a week, Neurontin 600 mg twice a day, azelastine 0.1% two squirts in each nostril b.i.d., Lipitor 40 mg q. daily at h.s., omeprazole 20 mg one-half hour before breakfast. She also has a Christiansen's esophagus which she told me about. Norvasc is 2.5 mg once a day. Refresh eye drops at bedtime. Systane one drop in each eye daily, calcium with Vitamin D two capsules a day, CoQ-10 200 mg once a day, Colace 100 mg t.i.d., fish oil 1,200 mg daily, Eva-C 1,000 mg daily, mature multiple Vitamin D one a day, Metamucil as needed, MiraLAX as needed, melatonin 10 mg at bedtime, baclofen 10 mg daily, Sequim 7.5 mg twice a day p.r.n. Paulino Law D.O. Date & Time JOB NUMBER: [id number] cc: Ye Avina M.D. John Ip, M.D. MTDD
[2016-12-09] MEDS ORDERED: SYNTHROID 125 MCG PO SCH (07:00)
[2016-12-09] MEDS ORDERED: PATIENT OWN MED: OMEPRAZOLE 20 MG PO SCH (07:00)
--- NOTE | 2016-12-09 07:20 | History and Physical Report ---
DATE OF ADMISSION: 12/07/2016 CHIEF COMPLAINT: Chest pain located in the left chest around the pacemaker battery site with some radiation to the left arm and shoulder. HISTORY OF PRESENT ILLNESS: This 81-year-old female states that she had left-sided chest pain. She came into the emergency department. The pain was located in the area of the pacemaker batter. She was worried about the pacemaker, if it is working properly. She was evaluated by Dr. Holly and admitted to the hospital for serial cardiac enzymes and serial EKGs. She told him that the left-sided chest pain was present for 4 days. Some shortness of breath. She has a history of aortic stenosis. She is being followed by Dr. Ellis, pst specialist, and Dr. Rodriguez, the pacemaker doctor, and primary is Belinda Waggoner. PAST MEDICAL HISTORY: Atrial fibrillation, conversion x3, ablation, and now a pacemaker. She has had episodes of CVA and TIAs but no residual paralysis. She also has GERD, irritable bowel, colitis, Christiansen's esophagitis. She has diabetes, hypothyroidism. She no longer needs to take medication for diabetes. She has some overactive bladder problems, arthritis, fibromyalgia, history of anemia. PAST SURGICAL HISTORY: Hysterectomy, appendectomy, tonsillectomy, neck surgery x3, tailbone removal, right shoulder surgery, left knee surgery, cholecystectomy, parathyroid removed, left total knee revision on 01/01/2016, pacemaker after ablation. MEDICATIONS: 1. Aldactone 100 mg 1 daily. 2. Colcrys 0.6 mg twice a day. 3. Celexa 20 mg daily. 4. Lopressor 100 mg b.i.d. 5. Synthroid 125 mcg 6 days a week. 6. Neurontin 600 mg b.i.d. 7. Azelastine 0.1 mg 2 squirts in each nostril twice a day. 8. Lipitor 40 mg at h.s. 9. Omeprazole 20 mg 1/2 hour before breakfast because of Christiansen's esophagitis. 10. Norvasc 2.5 mg daily. 11. Refresh PM at 1 drop each eye at h.s. 12. Systane 1 drop each eye daily. 13. Calcium with vitamin D 2 tablets a day. 14. CoQ10 200 mcg daily. 15. Colace 100 mg 3 times a day. 16. Fish oil 1200 mg 2 times a day. 17. Vitamin C 1000 mg daily. 18. Multivitamin 1 a day. 19. Metamucil as needed. 20. MiraLax as needed. 21. She takes hair, nails, and skin 5000 mcg 1 a day. 22. Melatonin 10 mg at h.s. 23. Baclofen 10 mg 1 daily. 24. [place] 7.5 mg b.i.d. ALLERGIES: AGGRENOX, ALDOMET, DITROPAN, TOFRANIL, PLAVIX, PAXIL, POTASSIUM, SKELAXIN, TEGRETOL, TETANUS VACCINE. SOCIAL HISTORY: Former smoker, cigarettes. Stopped in 1961. No drug or alcohol use. FAMILY HISTORY: Cancer with mother, brother, sister. Heart disease in father, brother, sister. REVIEW OF SYSTEMS: HEENT: No upper respiratory infection symptoms, cough, cold, or congestion. Cardiovascular: See Chief Complaint. She has some pain around the battery of the pacemaker; however, no pain when I palpated the battery site today. There is some ecchymosis there but no signs of swelling, infection, or warmth. She states that she is breathing better. Her chest pain has been gone since she is in the emergency department. Respiratory: No shortness of breath, cough, cold, or congestion. Gastrointestinal: No nausea, vomiting, diarrhea, black stools, or bloody stools. Genitourinary: No dysuria, hematuria, frequency, or burning on urination. Musculoskeletal: She has arthritis with joint discomfort in back, arms, and legs. Neurological: She has had previous CVAs in the past. No new CVA symptoms. No chest pain or headache. No paralysis or balance problems. Gynecological History: No abnormal lumps in her breasts or abnormal vaginal bleeding. Endocrine: She has diet-controlled diabetes or hypothyroidism. Integument: No rash, ulcers, change in moles, or yellow skin. PHYSICAL EXAMINATION: VITALS: Height 5 feet 2 inches, weight 162 pounds. Temperature 98.0, pulse 77, blood pressure 134/80, respiratory rate 16, pulse ox 96% on room air. HEENT: Pupils are equal, round, and reactive to light and accommodation. Extraocular muscles are intact. Throat is clear. Nose is clear. Tympanic membranes are gandara. NECK: Supple. No jugular venous distention. No hepatojugular reflux. No carotid bruits. Thyroid is smooth. CARDIOVASCULAR: Paced rhythm and regular. No clicks, rubs, or gallops. RESPIRATORY: Clear to auscultation. Breath sounds equal bilaterally. ABDOMEN: Soft, nontender. No hepatosplenomegaly, no masses, no tenderness. Bowel sounds are active. No bruits. EXTREMITIES: No pitting edema. No cyanosis, no clubbing. Full range of motion. Peripheral pulses are good. GYNECOLOGICAL: Deferred. RECTAL: Deferred. GENITALIA: Deferred. NEUROLOGIC: Cranial nerves II-XII intact. No gross defects. Sensation normal, strength normal. Deep tendon reflexes equal bilaterally with Babinski negative. MENTAL STATUS: Alert and oriented x3. IMPRESSION: 1. Chest pain. 2. Anterior chest wall syndrome. 3. History of GERD. 4. History of hypothyroidism. 5. History of atrial fibrillation and history of ablation therapy. 6. History of low back pain and on [place] 7.5 twice a day. 7. History of hypercholesterolemia. 8. History of neuropathy. PLAN: Serial cardiac enzymes. Serial EKG. Dr. Macdonald consult. [facility]
--- NOTE | 2016-12-09 07:50 | Medical Records Consult ---
DATE OF CONSULTATION: 12/08/2016 REASON FOR CONSULTATION: The patient is an 81-year-old white female who brought herself into the emergency room yesterday for evaluation of discomfort in the left upper chest area that has been present for at least 2 weeks. It is a burning sensation. It is not particularly worsened with walking, deep breathing. She does notice if she uses her arm a lot, it does seem to make it more severe. She is left-handed. She denies any recent syncope, presyncope, PND, or orthopnea. She has had some flush feelings during the night with some sweating but there has been no documented fever at home or since she has been in the hospital. Troponins are negative. The proBNP is slightly elevated. She has a rather extensive past history of aortic stenosis of a moderate degree as well as paroxysmal atrial fibrillation, recently status post ablation with insertion of biventricular pacemaker. She apparently had an episode of syncope resulting in an intracranial bleed. For that reason, she is not obviously on full anticoagulation. She also has a history of known bilateral carotid disease, left subclavian stenosis, hypertension, hypothyroidism, type 2 diabetes mellitus, and dyslipidemia. She recently saw Dr. Ellis on 11/26/2016 and at that time he put her on colchicine because of a pericardial effusion and planned to see her back in about 3 months. He also was planning on performing a transesophageal echocardiogram to assess her aortic stenosis. If found to be severe, he was considering sending her to the [facility] clinic. He is also considering sending her to the structural heart disease doctors for consideration of a Watchman device. When examined, the patient was comfortably lying in bed reading a paper and no acute distress. MEDICATIONS: Medications according to our office prior to admission include Flonase as directed, Coumadin apparently as directed, Celexa once a day, Prilosec 40 mg a day, Neurontin 600 mg a day, Pingree p.r.n., Singulair once a day, Aldactone 50 mg a day, levothyroxine 125 mcg a day, Lipitor 40 mg a day, metoprolol 100 mg b.i.d., amlodipine 2.5 mg daily (recently started. She has noticed some increased swelling in her lower legs), colchicine 0.6 mg a day. ALLERGIES: She has multiple allergies including AGGRENOX, ALDOMET, DITROPAN, LIDOCAINE, PAXIL, PLAVIX, POTASSIUM, SKELAXIN, TEGRETOL, TETANUS TOXOID. FAMILY HISTORY: Noncontributory. PAST MEDICAL HISTORY: She apparently had a heart cath early this year that showed mild coronary artery disease, a "porcelain aorta." REVIEW OF SYSTEMS: A 10-point review of systems reviewed, included in HPI, otherwise negative. She does have a history of Christiansen's esophagus. PHYSICAL EXAMINATION: VITAL SIGNS: Per nurses' notes, reviewed, confirmed personally. GENERAL: An elderly white female in no acute distress who actually appears much younger than stated age. HEAD, EYES, EARS, NOSE, THROAT: Normocephalic and atraumatic. Lids, conjunctivae, and sclerae clear. Pupils are equal, round, and reactive to light and accommodation. Buccal mucosa is pink and moist. Uvula midline without retraction. NECK: Bilateral carotid bruits. Questionable left subclavian bruit. CHEST: Clear to auscultation and percussion. Pacemaker site is not inflamed. There is some slight tenderness. CARDIOVASCULAR: Regular rhythm. Grade 2-3 systolic crescendo/decrescendo murmur radiating to 2nd right intercostal space. No diastolic murmurs are noted. ABDOMEN: Soft. EXTREMITIES: Warm. Pulses are 2+/4 except the left radial pulse is decreased. There is no edema, cyanosis. NEUROLOGIC: Cranial nerves II-XII are intact. The patient is oriented to person, place, and time. RADIOGRAPHIC DATA: I reviewed her EKG. Shows a paced rhythm. Probably underlying atrial fibrillation. I reviewed her chest x-ray. Leads appear to be in proper place. I do not see any lead fractures. IMPRESSION: 1. Persistent left upper chest wall discomfort, probably musculoskeletal in etiology. 2. Permanent atrial fibrillation, status post biventricular pacing, AV maira ablation. 3. Moderate degree of aortic stenosis. 4. Mild coronary artery disease. 5. Bilateral carotid artery disease, left greater than right, left subclavian stenosis. 6. Hypertension. 7. Diabetes mellitus. 8. Christiansen's esophagus. 9. History of intracranial bleed. PLAN: I recommend mild analgesics for her discomfort. I think she can be discharged from the hospital. Follow up with Dr. Ellis and Dr. Robertson sooner than later. ADDENDUM: The patient is not taking Coumadin, is not taking Plavix, is taking one 81 mg aspirin a day. MTDD
== END 2016-12-08 15:34 | disposition home or self-care (01) ==
LOC: ER 16:19 → MEDSURG 20:07
PROVIDERS: ADMIT Emergency Medicine; ATTEND Emergency Medicine
DX: R07.89 Other chest pain (principal); I48.91 Unspecified atrial fibrillation; E11.9 Type 2 diabetes mellitus without complications; I10 Essential (primary) hypertension; K22.70 Barrett's esophagus without dysplasia; Z95.0 Presence of cardiac pacemaker; Z86.73 Personal history of transient ischemic attack (TIA), and cerebral infarction without residual deficits; M79.7 Fibromyalgia; Z87.891 Personal history of nicotine dependence; E03.9 Hypothyroidism, unspecified; E78.00 Pure hypercholesterolemia, unspecified; I35.0 Nonrheumatic aortic (valve) stenosis; M54.5 Low back pain
CPT/HCPCS: 99285 ×2; 82550; 85025; 85730; 85610; 82553; 84484 ×2; 80053; 83880; 71020; 94761; 93005 ×2; 93010 ×2; G0378 ×2; J3490; 99220

== ENCOUNTER 2017-07-31 12:23 | Day surgery (SDC) | payer MEDICARE ==
[2017-07-31] MEDS ORDERED: LIDOCAINE 2% MDV (20MG/ML) 20ML VIAL IV ONE (12:24)
[2017-07-31] MEDS ORDERED: FENTANYL PF 100MCG/2ML VIAL IV ONE (12:24)
[2017-07-31] MEDS ORDERED: PROPOFOL 10 MG/ML VIAL IV ONE (12:24)
--- NOTE | 2017-08-31 13:40 | Operative Note ---
DATE OF SURGERY: 07/31/2017 SURGEON: Jose Antonio Lan MD OPERATION: ESOPHAGOGASTRODUODENOSCOPY. INDICATIONS: This is an 81-year-old female with history of gastroesophageal reflux disease and epigastric pain who presented for esophagogastroduodenoscopy. POSTOPERATIVE DIAGNOSES: 1. Mild distal esophagitis. 2. Diffuse gastritis. 3. Normal duodenum. ANESTHESIA: Sedation is per Anesthesia. Pulse oximetry was monitored throughout the procedure to maintain O2 saturation of 90% or greater. Supplemental oxygen was administered via nasal cannula. Cardiac and vital signs were monitored throughout the duration of the procedure, and they were stable. The procedure of esophagogastroduodenoscopy and risks and benefits of the procedure, including the risk of bleeding and perforation, among others, were explained to the patient who voiced understanding and agreed to have the procedure done. Physical examination was performed, and the patient was found stable for sedation. PROCEDURE: The patient was placed in the left lateral position. Sedation was initiated. A plastic bite block was inserted into the oral cavity. The Olympus [id number] gastroscope was introduced into the oral cavity and advanced to the proximal esophagus without difficulty. The esophageal mucosa was carefully examined upon introduction of the gastroscope. The proximal and mid esophageal mucosa appeared normal. In the distal esophagus there was mild Z line irregularity but no ulcerations or strictures noted. The gastroscope was then advanced into the stomach, and surveillance of the stomach revealed diffuse erythema along the gastric body and antrum but no ulcers were noted. The gastroscope was then advanced to the descending duodenum without difficulty. The duodenal bulb and descending duodenal mucosa appeared normal. The gastroscope was then withdrawn into the stomach and retroflexion was performed. There were no other lesions noted. The gastroscope was then straightened and withdrawn while carefully examining the gastric and esophageal mucosa. No other lesions noted. Multiple gastric and distal esophageal biopsies were obtained. The patient remained with stable vital signs and was transferred to the recovery room. RECOMMENDATIONS: The patient is to be on proton pump inhibitors and I will see her back in the office as needed. Thank you for allowing me to participate in the care of your patient. CC: MD LANA Pride
== END 2017-07-31 14:15 | disposition home or self-care (01) ==
LOC: HOP 12:23
PROVIDERS: ATTEND Internal Medicine Gastroenterology
DX: R10.13 Epigastric pain (principal); K21.9 Gastro-esophageal reflux disease without esophagitis; K20.8 Other esophagitis; K29.60 Other gastritis without bleeding; K31.89 Other diseases of stomach and duodenum; I10 Essential (primary) hypertension
CPT/HCPCS: 43235; 00731; 88305; 88313; J3010

== ENCOUNTER 2018-06-10 17:24 | Emergency (ER) | payer MEDICARE ==
--- NOTE | 2018-06-10 18:57 | Emergency Department Record ---
History of Present Illness - General Chief complaint: Extremity Problem Stated complaint: CHECK FOR BLOOD CLOT Time Seen by Provider: 06/10/18 18:54 Source: Patient Mode of Arrival: Ambulatory Limitations: No limitations - History of Present Illness Initial comments: 82 yo female presents to ED for concern over a possible blood clot to the anterior right infra-patellar region on examination. Patient reports mild redness and bruising to the area with associated STS distally to the foot. Patient first noticed her symptoms 3 days ago, denies injury or tramua. Patient was concerned about possible DVT. Patient denies previous history of DVT/PE. Patient does not take anticoagulation medications other than Plavix and ASA. MD Complaint: Extremity swelling Onset/Timin -: Days(s) Location: Right, Lower Leg -: Yes Myalgia Radiation: Distal Consistency: Constant Improves with: Nothing Worsens with: Nothing - Related Data Previous Rx's Medication Instructions Recorded Cephalexin [Keflex] 500 mg PO QID #28 cap 06/10/18 Allergies Allergy/AdvReac Type Severity Reaction Status Date / Time aspirin [From Aggrenox] Allergy Severe HEADACHE Verified 06/10/18 18:57 dipyridamole [From Aggrenox] Allergy Severe HEADACHE Verified 06/10/18 18:57 imipramine HCl Allergy Severe HYPERTENSION, Verified 06/10/18 18:57 [From Tofranil] INCREASED HEART RATE methyldopa [From Aldomet] Allergy Severe HEPATITIS Verified 06/10/18 18:57 methyldopate HCl Allergy Severe HEPATITIS Verified 06/10/18 18:57 [From Aldomet] Tetanus Vaccines and Toxoid Allergy Severe RASH, Verified 06/10/18 18:57 [Tetanus Vaccines & Toxoid] SWELLING, ITCHING clopidogrel bisulfate Allergy Intermediate BRUISING Verified 06/10/18 18:57 [From Plavix] lidocaine Allergy Intermediate FAINTING Verified 06/10/18 18:57 metaxalone [From Skelaxin] Allergy Intermediate ITCHING Verified 06/10/18 18:57 oxybutynin chloride Allergy Intermediate HEARTBURN Verified 06/10/18 18:57 [From Ditropan] paroxetine HCl [From Paxil] Allergy Intermediate DIARRHEA Verified 06/10/18 18: 57 potassium Allergy Mild NAUSEA Verified 06/10/18 18:57 carbamazepine [From Tegretol] AdvReac Intermediate HYPERTENSIO Verified 18:57 N acetaminophen [From Percocet] AdvReac feet Verified 06/10/18 18:57 swelling oxycodone [From Percocet] AdvReac feet Verified 06/10/18 18:57 swelling Travel Screening - Travel/Exposure Within Last 30 Days Have you traveled within the last 30 days?: No - Travel/Exposure Within Last Year Have you traveled outside the [place] in the last year?: No - Additonal Travel Details Have you been exposed to anyone with a communicable illness?: No - Travel Symptoms Symptom Screening: None Review of Systems Constitutional: Denies: Chills, Fever, Malaise, Night sweats Eyes: Denies: Eye discharge, Eye pain ENT: Denies: Congestion, Ear pain, Epistaxis Respiratory: Denies: Cough, Dyspnea Cardiovascular: Denies: Chest pain, Dyspnea on exertion Endocrine: Denies: Fatigue, Heat or cold intolerance Gastrointestinal: Denies: Abdominal pain, Nausea, Vomiting Genitourinary: Denies: Incontinence, Retention Musculoskeletal: Reports: Myalgia. Denies: Arthralgia, Back pain, Gout, Joint swelling Skin: Reports: Bruising. Denies: Rash Neurological: Denies: Abnormal gait, Confusion, Headache Psychiatric: Denies: Anxiety Hematological/Lymphatic: Denies: Anemia, Blood Clots, Easy bleeding, Easy bruising Past Medical History - SOCIAL HISTORY Smoking Status: Former smoker Alcohol Use: None Drug Use: None - RESPIRATORY Hx Respiratory Disorders: Yes Hx Bronchitis: Yes - CARDIOVASCULAR Hx Cardio Disorders: Yes Comment:: cardioversion needed x3 for a-fib, also had ablation. needs heart valve rep - NEURO Hx Neuro Disorders: Yes Hx CVA: Yes (x2) - GI Hx GI Disorders: Yes Hx Reflux: Yes Hx Irritable Bowel: Yes Hx Ulcer: Yes Hx of Polyps: Yes Comment:: Microscopic colitis, Christiansen's Esophagus - Hx Genitourinary Disorders: Yes Hx Bladder Problem: Yes Hx Renal Disease: Yes (renal insufficiency) - ENDOCRINE Hx Endocrine Disorders: Yes Hx Diabetes: Yes Hx Thyroid Disease: Yes Comment:: 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 - MUSCULOSKELETAL Hx Musculoskeletal Disorders: Yes Hx Arthritis: Yes Hx Fibromyalgia: Yes Comment:: DJD - PSYCH Hx Psych Problems: No - HEMATOLOGY/ONCOLOGY Hx Hematology/Oncology Disorders: Yes Hx Blood Transfusions: Yes (2015 s/p TKR) Family Medical History Any Significant Family History?: No Hx Cancer: Mother, Brother/Sister Hx Heart Disease: Father, Brother/Sister Physical Exam - General General Appearance: Alert, Oriented x3, Cooperative, No acute distress Limitations: No limitations - Head Head exam: Atraumatic, Normocephalic, Normal inspection Head exam detail: negative: Abrasion, Contusion, Tong's sign, General tenderness, Hematoma, Laceration - Eye Eye exam: Normal appearance. negative: Conjunctival injection, Periorbital swelling, Periorbital tenderness, Scleral icterus - ENT Ear exam: negative: Auricular hematoma, Auricular trauma Nasal Exam: negative: Active bleeding, Discharge, Dried blood, Foreign body Mouth exam: negative: Drooling, Laceration, Muffled voice, Tongue elevation - Neck Neck exam: Normal inspection. negative: Meningismus, Tenderness - Respiratory Respiratory exam: Normal lung sounds bilaterally. negative: Respiratory distress, Rhonchi, Stridor, Wheezes - Cardiovascular Cardiovascular Exam: Regular rate, Normal rhythm, Normal heart sounds - GI/Abdominal GI/Abdominal exam: Soft. negative: Rigid, Tenderness - Rectal Rectal exam: Deferred - exam: Deferred - Extremities Extremities exam: Pedal edema, Tenderness, Other (STS and edema to the right lower extremity, mild TTP and erythema to the infra-patellar region anteriorly, strong DPP on examination. No induration or fluctuance are noted on examination.). negative: Calf tenderness - Back Back exam: Denies: CVA tenderness (R), CVA tenderness (L) - Neurological Neurological exam: Alert, Normal gait, Oriented X3 - Psychiatric Psychiatric exam: Normal affect, Normal mood - Skin Skin exam: Normal color. negative: Abrasion Type of lesion: negative: abrasion Course Vital Signs 06/10/18 18:48 Temperature 98.1 F Pulse Rate 77 Respiratory 16 Rate Blood Pressure 137/76 Pulse Ox 98 - Reevaluation(s) Reevaluation #1: 06/10/18 19:03 Venous Doppler RLE: No evidence for DVT ? Fluid collection anterior infra-patellar region Patient was updated on her results, findings appear c/w superficail thrombophlebitis vs. small area of cellulitis w/o abscess. Will treat with Keflex, warm soaks BID. Patient appears stable for discharge at this time. Disposition Disposition: Discharge Clinical Impression: Superficial thrombophlebitis Qualifiers: Superficial thrombophlebitis-Involved body area: lower extremity Laterality: right Qualified Code(s): I80.01 - Phlebitis and thrombophlebitis of superficial vessels of right lower extremity Disposition: Home, Self-Care Condition: (2) Stable Instructions: Superficial Thrombophlebitis (ED) Additional Instructions: Return to ED if your symptoms worsen or if you have any concerns. Warm soaks to the affected area twice daily. Keflex as directed. Follow-up with your family doctor in 3-5 days. Prescriptions: Cephalexin [Keflex] 500 mg PO QID #28 cap Forms: Patient Portal Access Time of Disposition: 18:57 Quality - Quality Measures Quality Measures: N/A - Blood Pressure Screening Does Patient Have Any of the Following: Active Dx of HTN Blood Pressure Classification: Pre-Hypertensive BP Reading Systolic Measurement: 137 Diastolic Measurement: 76 Screening for High Blood Pressure: Patient Exclusion, Hx of HTN [[id number]]
--- NOTE | 2018-06-12 20:09 | US VENOUS DOPPLER REPORT ---
EXAM: ULTRASOUND VENOUS DOPPLER LOWER EXT RT HISTORY: LEG SWELLING AND PAIN. TECHNIQUE: Right lower extremity venous Duplex ultrasound with evaluation of compression, augmentation, and color-flow. COMPARISON: None. FINDINGS: No evidence of thrombus within the right external iliac, common femoral, profunda femoral, proximal/mid/distal femoral, popliteal, gastrocnemius, peroneal, anterior tibial, and posterior tibial veins. No evidence of thrombus in the left external iliac or common femoral veins. Superficial heterogeneously hypoechoic collection in the superficial soft tissues and area of patient's symptoms, described by performing technologist as "Inferior to the knee", measuring approximately 3.5 x 3.4 x 0.8 cm. No internal color-flow. IMPRESSION: 1. NO EVIDENCE OF RIGHT LOWER EXTREMITY DEEP VENOUS THROMBOSIS. 2. INDETERMINATE SUPERFICIAL HYPOECHOIC COLLECTION MEASURING UP TO 3.5 CM IN THE AREA OF PATIENT CLINICAL SYMPTOMS; NOT WELL LOCALIZED ON THIS EXAMINATION. DIFFERENTIAL CONSIDERATIONS INCLUDE BURSITIS, SOFT TISSUE HEMATOMA, WITH INFECTED SOFT TISSUE COLLECTION NOT EXCLUDED. JOB NUMBER: [id number] [facility]
== END 2018-06-10 19:06 | disposition home or self-care (01) ==
LOC: ER 17:24
DX: I80.01 Phlebitis and thrombophlebitis of superficial vessels of right lower extremity (principal); I10 Essential (primary) hypertension; Z87.891 Personal history of nicotine dependence
CPT/HCPCS: 99283

== ENCOUNTER 2018-06-14 10:30 | Observation (INO) | payer MEDICARE ==
--- NOTE | 2018-06-14 11:10 | Emergency Department Record ---
History of Present Illness - General Chief complaint: Extremity Problem Stated complaint: RLE SWELLING/PAIN Time Seen by Provider: 06/14/18 10:56 Source: Patient Mode of Arrival: Ambulatory Limitations: No limitations - History of Present Illness Initial comments: The patient is here due to a one week hx of R leg pain and swelling. She was in the ER 4 days ago for the same thing and had a neg R leg Doppler and was placed on Keflex for presumed cellulitis. Now the R leg has become more swollen and bruised mainly down by the R ankle and foot. She denies any fever, chills, or any new issues. MD Complaint: Extremity pain, Extremity swelling Onset/Timin -: Week(s) Location: Right, Ankle, Foot, Lower Leg - Related Data Previous Rx's Medication Instructions Recorded Cephalexin [Keflex] 500 mg PO QID #28 cap 06/10/18 Allergies Allergy/AdvReac Type Severity Reaction Status Date / Time aspirin [From Aggrenox] Allergy Severe HEADACHE Verified 06/10/18 18:57 dipyridamole [From Aggrenox] Allergy Severe HEADACHE Verified 06/10/18 18:57 imipramine HCl Allergy Severe HYPERTENSION, Verified 06/10/18 18:57 [From Tofranil] INCREASED HEART RATE methyldopa [From Aldomet] Allergy Severe HEPATITIS Verified 06/10/18 18:57 methyldopate HCl Allergy Severe HEPATITIS Verified 06/10/18 18:57 [From Aldomet] Tetanus Vaccines and Toxoid Allergy Severe RASH, Verified 06/10/18 18:57 [Tetanus Vaccines & Toxoid] SWELLING, ITCHING clopidogrel bisulfate Allergy Intermediate BRUISING Verified 06/10/18 18:57 [From Plavix] lidocaine Allergy Intermediate FAINTING Verified 06/10/18 18:57 metaxalone [From Skelaxin] Allergy Intermediate ITCHING Verified 06/10/18 18:57 oxybutynin chloride Allergy Intermediate HEARTBURN Verified 06/10/18 18:57 [From Ditropan] paroxetine HCl [From Paxil] Allergy Intermediate DIARRHEA Verified 06/10/18 18: 57 potassium Allergy Mild NAUSEA Verified 06/10/18 18:57 carbamazepine [From Tegretol] AdvReac Intermediate HYPERTENSIO Verified 18:57 N acetaminophen [From Percocet] AdvReac feet Verified 06/10/18 18:57 swelling oxycodone [From Percocet] AdvReac feet Verified 06/10/18 18:57 swelling Travel Screening - Travel/Exposure Within Last 30 Days Have you traveled within the last 30 days?: No - Travel/Exposure Within Last Year Have you traveled outside the [place] in the last year?: No - Additonal Travel Details Have you been exposed to anyone with a communicable illness?: No - Travel Symptoms Symptom Screening: None Review of Systems Constitutional: Denies: Chills, Fever Eyes: Denies: Eye discharge ENT: Denies: Congestion Respiratory: Denies: Cough, Dyspnea Cardiovascular: Denies: Arrhythmia Endocrine: Denies: Fatigue Gastrointestinal: Denies: Abdominal pain Genitourinary: Denies: Dysuria Musculoskeletal: Denies: Arthralgia Skin: Reports: Bruising Neurological: Denies: Abnormal gait Past Medical History - SOCIAL HISTORY Smoking Status: Former smoker Alcohol Use: None Drug Use: None - RESPIRATORY Hx Respiratory Disorders: Yes Hx Bronchitis: Yes - CARDIOVASCULAR Hx Cardio Disorders: Yes Comment:: cardioversion needed x3 for a-fib, also had ablation. needs heart valve rep - NEURO Hx Neuro Disorders: Yes Hx CVA: Yes (x2) - GI Hx GI Disorders: Yes Hx Reflux: Yes Hx Irritable Bowel: Yes Hx Ulcer: Yes Hx of Polyps: Yes Comment:: Microscopic colitis, Christiansen's Esophagus - Hx Genitourinary Disorders: Yes Hx Bladder Problem: Yes Hx Renal Disease: Yes (renal insufficiency) - ENDOCRINE Hx Endocrine Disorders: Yes Hx Diabetes: Yes Hx Thyroid Disease: Yes Comment:: 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 - MUSCULOSKELETAL Hx Musculoskeletal Disorders: Yes Hx Arthritis: Yes Hx Fibromyalgia: Yes Comment:: DJD - PSYCH Hx Psych Problems: No - HEMATOLOGY/ONCOLOGY Hx Hematology/Oncology Disorders: Yes Hx Blood Transfusions: Yes (2014 s/p TKR) Family Medical History Any Significant Family History?: No Hx Cancer: Mother, Brother/Sister Hx Heart Disease: Father, Brother/Sister Physical Exam - General General Appearance: Alert, Oriented x3, Cooperative, No acute distress - Head Head exam: Atraumatic, Normocephalic - Eye Eye exam: Normal appearance, PERRL - Neck Neck exam: Normal inspection, Full ROM. negative: Tenderness - Respiratory Respiratory exam: Normal lung sounds bilaterally. negative: Respiratory distress - Cardiovascular Cardiovascular Exam: Regular rate - GI/Abdominal GI/Abdominal exam: Soft, Normal bowel sounds. negative: Tenderness - Extremities Extremities exam: Full ROM, Pedal edema (Trace R leg.), Tenderness, Other (The DP pulses are 2+ and equal bilaterally. ). negative: Normal inspection (There is a 4x4 cm area of erythema and tenderness over the R pretibial area. There is no fluctuance or palpable abscess. There is mild surrounding bruising present with significan bruising to the R foot and ankle. ), Calf tenderness, Joint swelling - Back Back exam: Reports: Normal inspection - Neurological Neurological exam: Alert. negative: Motor sensory deficit Course Vital Signs 06/14/18 10:35 Temperature 97.5 F L Pulse Rate 75 Respiratory 16 Rate Blood Pressure 121/59 Pulse Ox 98 - Reevaluation(s) Reevaluation #1: The patient is doing very well at this time and has no new complaints. I did explain do to the fact the infected area is no worse we will have to admit the patient overnight for an IV Abx's. The patient agrees with the plan. I did discuss the case with Dr. Newton and he does accept the admission. 06/14/18 12:19 Medical Decision Making - Data Complexity MDM Data: Labs Ordered and/or Reviewed - Lab Data Result diagrams: 06/14/18 11:13 06/14/18 11:13 Disposition Disposition: Admit Clinical Impression: Cellulitis Qualifiers: Site of cellulitis: unspecified site Qualified Code(s): L03.90 - Cellulitis, unspecified Disposition: Still a Patient at [facility] Decision to Admit: Admit from ER Decision to Admit Date: 06/14/18 Decision to Admit Time: 12:20 Accepting Physician: Lamar Time Discussed w/Accepting Physician: 12:21 Condition: (2) Stable Forms: Patient Portal Access Time of Disposition: 12:21 Quality - Quality Measures Quality Measures: Blunt Head Trauma (>2yr) - Blunt Head Trauma - Adult Quality Measure: Measure #415: Utilization of CT for Minor Blunt Head Trauma ICD10 Codes Entered: Yes View Details: Yes Was CT ordered: No Nick Score: Please complete Nick Coma Scale above Utilization of CT for Minor Blunt Head Trauma: Not Eligible For Measure Additional Inclusion Criteria: More than 24hrs (OR) GCS not 15 (OR) CT not ordered. Not Eligible Reason: CT Not Ordered - Blood Pressure Screening View Details: Yes Does Patient Have Any of the Following: No Blood Pressure Classification: Pre-Hypertensive BP Reading Systolic Measurement: 121 Diastolic Measurement: 59 Screening for High Blood Pressure: < Pre-Hypertensive BP, F/U Documented > [ G8950] Pre-Hypertensive Follow-up Interventions: Referral to alternative/primary care provider.
[2018-06-14 11:20] LABS: BASO % 0.4 % (0-6); EOS % 1.2 % (0-6); HEMATOCRIT 36.3 % (35.0-47.0); HEMOGLOBIN 11.9 gm/dl (11.6-16.0); MEAN CELL VOLUME 95.5 fl (81-97); MEAN CORPUSCULAR HEMOGLOBIN 31.3 pg (27-33); MEAN CORPUSCULAR HGB CONC 32.8 g/dl (32-36); MEAN PLATELET VOLUME 8.6 fl (7.4-10.4); MONO % 11.4 % (0-9); PLATELET COUNT 225 K/uL (130-400); RED CELL DISTRIBUTION WIDTH 13.4 % (11.5-14.5); WHITE BLOOD COUNT W/O DIFF 7.6 K/uL (4.2-12.2)
[2018-06-14 11:34] LABS: INR 1.1; PARTIAL THROMBOPLASTIN TIME 26.5 SECONDS (24.5-39.1)
[2018-06-14 11:58] LABS: C-REACTIVE PROTEIN 0.55 mg/dL (<0.5)
[2018-06-14] MEDS ORDERED: CLINDAMYCIN 600MG/50ML PREMIX 600 MG/50 ML BAG IVPB ONE (12:18)
[2018-06-14] MEDS ORDERED: ACETAMINOPHEN 325 MG TAB PO PRN (13:39)
--- NOTE | 2018-06-14 14:28 | History & Physical ---
History of Present Illness - Date of Service Date of Service for History & Physical: 06/14/18 - History of Present Illness Admitting Diagnosis: 1. Right leg Cellulitis History of Present Illness: Mrs. Pulido is a 82 y/o female with swelling, pain and redness of the right knee for the past 4 days. She presented to the ED at that time and was discharged home on Kelfex. The patient states that her leg continued to become more red, painful and swollen with extension to her ankle. She denies any injury , insect bites, or pet scratches. She has has chronic edema of bilateral lower extremities and was recently started on Spirinolactone by her Supervisor Shipping. On 06/10/18 the patient has venous doppler of the right lower extremity which was unremarkable for DVT. Since there is no resolution of symptoms on oral antibiotics the patient is admitted for IV therapy. PCP: Dr. Newton Travel Screening - Travel/Exposure Within Last 30 Days Have you traveled within the last 30 days?: No - Travel/Exposure Within Last Year Have you traveled outside the [place] in the last year?: No - Additonal Travel Details Have you been exposed to anyone with a communicable illness?: No - Travel Symptoms Symptom Screening: None Review of Systems Constitutional: Denies: Chills, Fever Eyes: Denies: Eye discharge ENT: Denies: Congestion Respiratory: Denies: Cough, Dyspnea Cardiovascular: Denies: Arrhythmia Endocrine: Denies: Fatigue Gastrointestinal: Denies: Abdominal pain Genitourinary: Denies: Dysuria Musculoskeletal: Denies: Arthralgia Skin: Reports: Bruising Neurological: Denies: Abnormal gait Past Medical History - SOCIAL HISTORY Smoking Status: Former smoker Alcohol Use: None Drug Use: None - RESPIRATORY Hx Respiratory Disorders: Yes Hx Bronchitis: Yes - CARDIOVASCULAR Hx Cardio Disorders: Yes Comment:: cardioversion needed x3 for a-fib, also had ablation. needs heart valve rep - NEURO Hx Neuro Disorders: Yes Hx CVA: Yes (x2) - GI Hx GI Disorders: Yes Hx Reflux: Yes Hx Irritable Bowel: Yes Hx Ulcer: Yes Hx of Polyps: Yes Comment:: Microscopic colitis, Christiansen's Esophagus - Hx Genitourinary Disorders: Yes Hx Bladder Problem: Yes Hx Renal Disease: Yes (renal insufficiency) - ENDOCRINE Hx Endocrine Disorders: Yes Hx Diabetes: Yes Hx Thyroid Disease: Yes Comment:: 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 - MUSCULOSKELETAL Hx Musculoskeletal Disorders: Yes Hx Arthritis: Yes Hx Fibromyalgia: Yes Comment:: DJD - PSYCH Hx Psych Problems: No - HEMATOLOGY/ONCOLOGY Hx Hematology/Oncology Disorders: Yes Hx Blood Transfusions: Yes (2014 s/p TKR) Family Medical History Any Significant Family History?: No Hx Cancer: Mother, Brother/Sister Hx Heart Disease: Father, Brother/Sister H&P Meds/Allergies - Allergies Allergies: Allergies Allergy/AdvReac Type Severity Reaction Status Date / Time dipyridamole [From Aggrenox] Allergy Severe HEADACHE Verified 06/10/18 18:57 imipramine HCl Allergy Severe HYPERTENSION, Verified 06/10/18 18:57 [From Tofranil] INCREASED HEART RATE methyldopa [From Aldomet] Allergy Severe HEPATITIS Verified 06/10/18 18:57 methyldopate HCl Allergy Severe HEPATITIS Verified 06/10/18 18:57 [From Aldomet] Tetanus Vaccines and Toxoid Allergy Severe RASH, Verified 06/10/18 18:57 [Tetanus Vaccines & Toxoid] SWELLING, ITCHING clopidogrel bisulfate Allergy Intermediate BRUISING Verified 06/10/18 18:57 [From Plavix] lidocaine Allergy Intermediate FAINTING Verified 06/10/18 18:57 metaxalone [From Skelaxin] Allergy Intermediate ITCHING Verified 06/10/18 18:57 oxybutynin chloride Allergy Intermediate HEARTBURN Verified 06/10/18 18:57 [From Ditropan] paroxetine HCl [From Paxil] Allergy Intermediate DIARRHEA Verified 06/10/18 18: 57 potassium Allergy Mild NAUSEA Verified 06/10/18 18:57 carbamazepine [From Tegretol] AdvReac Intermediate HYPERTENSIO Verified 18:57 N oxycodone [From Percocet] AdvReac feet Verified 06/10/18 18:57 swelling - Home Medications Previous Rx's Medication Instructions Recorded Cephalexin [Keflex] 500 mg PO QID #28 cap 06/10/18 - Active Medications Active Medications: Current Medications Acetaminophen (Tylenol 325mg) 650 mg PO Q6H PRN PRN Reason: PAIN - MILD(1-4)/FEVER Hydrocodone Bitart/Acetaminophen ([place] 5mg/325mg) 1 each PO Q4H PRN PRN Reason: PAIN - MILD TO MODERATE (1-7) Aspirin (Ecotrin (Ec)) 81 mg PO QHS ADITI Atorvastatin Calcium (Lipitor) 80 mg PO DAILY ADITI Citalopram Hydrobromide (Celexa) 20 mg PO QHS ADITI Clopidogrel Bisulfate (Plavix) 75 mg PO DAILY ADITI Docusate Sodium (Colace) 100 mg PO TID ADITI Furosemide (Lasix) 20 mg PO DAILY ADITI Gabapentin (Neurontin) 600 mg PO BID ADITI Clindamycin Phosphate (Cleocin 600 [id number]) 600 mg in 50 mls @ 100 mls/ hr IVPB Q8H ADITI Levothyroxine Sodium (Synthroid) 100 mcg PO DAILYTHY DAITI Metoprolol Tartrate (Lopressor) 50 mg PO BID ADITI Non-Formulary Medication (Ubidecarenone [Co Q-10]) 200 mg PO DAILY ADITI Pantoprazole Sodium (Protonix) 40 mg PO BID ADITI Physical Exam - Vital Signs Vital Signs: Vital Signs - Last 24 Hrs Temp Pulse Pulse Resp BP BP Pulse Ox 06/14/18 13:25 97.5 F L 77 16 139/81 98 06/14/18 13:20 97.5 F L 74 18 153/72 97 06/14/18 12:28 75 16 137/79 96 06/14/18 10:35 97.5 F L 75 16 121/59 98 - General General Appearance: Alert, Oriented x3, Cooperative, No acute distress Limitations: No limitations - Head Head exam: Atraumatic, Normocephalic - Eye Eye exam: Normal appearance, PERRL - Neck Neck exam: Normal inspection, Full ROM. negative: Tenderness - Respiratory Respiratory exam: Normal lung sounds bilaterally. negative: Respiratory distress - Cardiovascular Cardiovascular Exam: Regular rate, Systolic murmur Peripheral Pulses: 2+: Radial (R), Radial (L) - GI/Abdominal GI/Abdominal exam: Soft, Normal bowel sounds. negative: Tenderness - Extremities Extremities exam: Full ROM, Pedal edema (Trace R leg.), Tenderness (right tib/ fib from knee to ankle), Other (The DP pulses are 2+ and equal bilaterally. ). negative: Normal inspection (There is a 4x4 cm area of erythema and tenderness over the R pretibial area. There is no fluctuance or palpable abscess. There is mild surrounding bruising present with significan bruising to the R foot and ankle. ), Calf tenderness, Joint swelling - Back Back exam: Reports: Normal inspection - Neurological Neurological exam: Alert. negative: Motor sensory deficit Results - Labs Result Diagrams: 06/14/18 11:13 06/14/18 11:13 Labs Last 24 Hours: Laboratory Results - last 24 hr 06/14/18 06/14/18 06/14/18 11:13 11:13 11:13 WBC 7.6 RBC 3.80 Hgb 11.9 Hct 36.3 MCV 95.5 MCH 31.3 MCHC 32.8 RDW 13.4 Plt Count 225 MPV 8.6 Gran % 69.0 Lymphocytes % 18.0 Monocytes % 11.4 H Eosinophils % 1.2 Basophils % 0.4 PT 11.0 INR 1.1 APTT 26.5 Sodium 143 Potassium 4.0 Chloride 105 Carbon Dioxide 27.0 Anion Gap 11.0 BUN 23 Creatinine 1.0 H Estimated GFR 56 Random Glucose 140 H Calcium 10.2 C-Reactive Protein 0.55 H Procalcitonin 0.045 VTE H&P Assessment - Risk for VTE Risk for VTE: Yes Risk Level: High Risk Assessment Date: 06/14/18 Risk Assessment Time: 14:13 VTE Orders Placed or Will Be Placed: Yes Plan - Detailed Diagnosis and Plan (1) Cellulitis Current Visit: Yes Status: Acute Qualifiers: Site of cellulitis: unspecified site Qualified Code(s): L03.90 - Cellulitis , unspecified Base Code: L03.90 - CELLULITIS, UNSPECIFIED Comment: 06/14/18: - Right knee/leg cellulitis x 4 days. - Failed Keflex treatment. CBC, lytes within normal limits. - Clindamycin 600mg IV Q8H, [place] 5/325mg Q4H, Tylenol 500mg Q4H (2) Hx of aortic valve replacement Current Visit: Yes Status: Acute Base Code: Z95.2 - PRESENCE OF PROSTHETIC HEART VALVE Comment: 06/14/18: - TAVR raheem Santosvalangelo June 2017. - Resume Metoprolol, ASA/Plavix. - Follows with [facility]. (3) Hypothyroid Current Visit: Yes Status: Acute Base Code: E03.9 - HYPOTHYROIDISM, UNSPECIFIED Comment: 06/14/18: - Resume Levothyroxine. (4) DVT prophylaxis Current Visit: Yes Status: Acute Base Code: [id number] - Comment: 06/14/18: - Lovenox 40mg subq QD (5) Full code status Current Visit: Yes Status: Acute Base Code: Z78.9 - OTHER SPECIFIED HEALTH STATUS Comment: 06/14/18: - Full code status. - Disposition Likelt d/c tomorrow. Pt using home medications as she is concerned about being in observation status and having a bill. SW addressing concerns.
[2018-06-14] MEDS ORDERED: ZOLPIDEM 5 MG PO PRN (14:29)
[2018-06-14] MEDS: HYDROCODONE/APAP 5/325MG TABLET PO PRN ×2 (16:21→20:28)
[2018-06-14] MEDS: PATIENT OWN MED: PANTOPRAZOLE 40 MG PO SCH (18:06)
[2018-06-14] MEDS ORDERED: ENOXAPARIN 40 MG/0.4 ML SYR SQ SCH (18:15)
[2018-06-14] MEDS ORDERED: PATIENT OWN MED: ASPIRIN 81 MG PO SCH (22:00)
[2018-06-14] MEDS ORDERED: PATIENT OWN MED: CITALOPRAM 20 MG PO SCH (22:00)
[2018-06-14] MEDS ORDERED: PATIENT OWN MED: ATORVASTATIN 80 MG PO SCH (22:00)
[2018-06-14] MEDS: DOCUSATE 100 MG PO SCH (22:02)
[2018-06-14] MEDS: METOPROLOL TARTRATE 50 MG PO SCH (22:03)
[2018-06-14] MEDS: PATIENT OWN MED: GABAPENTIN 600 MG PO SCH (22:03)
[2018-06-14] MEDS: CLINDAMYCIN 600MG/50ML PREMIX 600 MG/50 ML BAG IVPB SCH (22:17)
[2018-06-15] MEDS: CLINDAMYCIN 600MG/50ML PREMIX 600 MG/50 ML BAG IVPB SCH (06:23)
[2018-06-15] MEDS: PATIENT OWN MED: PANTOPRAZOLE 40 MG PO SCH (06:29)
[2018-06-15] MEDS ORDERED: PATIENT OWN MED: LEVOTHYROXINE 100 MCG PO SCH (07:00)
[2018-06-15] MEDS: PATIENT OWN MED: GABAPENTIN 600 MG PO SCH (09:17)
[2018-06-15] MEDS: DOCUSATE 100 MG PO SCH (09:17)
[2018-06-15] MEDS: METOPROLOL TARTRATE 50 MG PO SCH (09:18)
[2018-06-15] MEDS ORDERED: CLOPIDOGREL 75 MG PO SCH (10:00)
[2018-06-15] MEDS ORDERED: UBIDECARENONE 200 MG PO SCH (10:00)
[2018-06-15] MEDS ORDERED: PATIENT OWN MED: FUROSEMIDE 20 MG PO SCH (10:00)
[2018-06-15] MEDS ORDERED: SENNOSIDES/DOCUSATE SODIUM UD CAPSULE PO SCH (10:00)
--- NOTE | 2018-06-15 10:24 | Discharge Summary ---
Providers Discharge Summary Date: 06/15/18 Date of admission: 06/14/18 13:12 Expected Date of Discharge: 06/15/18 Attending physician: GRECIA NEWTON Primary care physician: GRECIA NEWTON Physical Exam - Vital Signs Vital Signs: Vital Signs - Last 24 Hrs Temp Pulse Pulse Resp BP BP Pulse Ox 06/15/18 09:00 75 18 06/15/18 08:00 98.3 F 75 18 137/73 99 06/15/18 04:00 97.6 F 75 20 124/69 95 06/14/18 19:39 98.1 F 74 20 138/57 97 06/14/18 15:39 97.8 F 74 18 153/81 98 06/14/18 13:25 97.5 F L 77 16 139/81 98 06/14/18 13:20 97.5 F L 74 18 153/72 97 06/14/18 12:28 75 16 137/79 96 06/14/18 10:35 97.5 F L 75 16 121/59 98 - General General Appearance: Alert, Oriented x3, Cooperative, No acute distress Limitations: No limitations - Head Head exam: Atraumatic, Normocephalic - Eye Eye exam: Normal appearance, PERRL - Neck Neck exam: Normal inspection, Full ROM. negative: Tenderness - Respiratory Respiratory exam: Normal lung sounds bilaterally. negative: Respiratory distress - Cardiovascular Cardiovascular Exam: Regular rate, Systolic murmur Peripheral Pulses: 2+: Radial (R), Radial (L), Dorsalis Pedis (R), Dorsalis Pedis (L) - GI/Abdominal GI/Abdominal exam: Soft, Normal bowel sounds. negative: Tenderness - Extremities Extremities exam: Full ROM, Pedal edema (Trace R leg.), Tenderness (right tib/ fib from knee to ankle), Other (The DP pulses are 2+ and equal bilaterally. ). negative: Normal inspection (There is receding area of erythema and tenderness over the R pretibial area. There is no fluctuance or palpable abscess. There is mild surrounding bruising present with significan bruising to the R foot and ankle. ), Calf tenderness, Joint swelling - Back Back exam: Reports: Normal inspection - Neurological Neurological exam: Alert. negative: Motor sensory deficit Hospitalization - Hospitalization Admission Diagnosis: 1. Right leg Cellulitis - Problem List/Discharge Diagnosis (1) Cellulitis Current Visit: Yes Status: Acute Discharge Diagnosis: Site of cellulitis: unspecified site Qualified Code(s): L03.90 - Cellulitis , unspecified Base Code: L03.90 - CELLULITIS, UNSPECIFIED Comment: 06/15/18 -cellulitis erythema receding 50% with IV clindamycin -pt reports improvment in symptoms and wants to go home -PO clinda for 9 days, norco BID PRN for 3 days, f/u PCP in 1-1 1/2 weeks -to ER for return of symptoms 06/14/18: - Right knee/leg cellulitis x 4 days. - Failed Keflex treatment. CBC, lytes within normal limits. - Clindamycin 600mg IV Q8H, [place] 5/325mg Q4H, Tylenol 500mg Q4H (2) DVT prophylaxis Current Visit: Yes Status: Acute Base Code: [id number] - Comment: 06/14/18: - Lovenox 40mg subq QD (3) Full code status Current Visit: Yes Status: Acute Base Code: Z78.9 - OTHER SPECIFIED HEALTH STATUS Comment: 06/15/18 full code 06/14/18: - Full code status. (4) Hx of aortic valve replacement Current Visit: Yes Status: Acute Base Code: Z95.2 - PRESENCE OF PROSTHETIC HEART VALVE Comment: 06/15/18 -follow up with [facility] as needed 06/14/18: - TAVR witmarcus Corvalve June 2017. - Resume Metoprolol, ASA/Plavix. - Follows with [facility]. - Hospitalization Course Hospital Course: Mrs. Pulido is a 82 y/o female with swelling, pain and redness of the right knee for the past 4 days. She presented to the ED at that time and was discharged home on Kelfex. The patient states that her leg continued to become more red, painful and swollen with extension to her ankle. She denies any injury , insect bites, or pet scratches. She has has chronic edema of bilateral lower extremities and was recently started on Spirinolactone by her Vegetable Canner. On 06/10/18 the patient has venous doppler of the right lower extremity which was unremarkable for DVT. Since there is no resolution of symptoms on oral antibiotics the patient is admitted for IV therapy. PCP: Dr. Newton Abnormal Labs: Abnormal Lab Results 06/14/18 06/14/18 Range/Units 11:13 11:13 Monocytes % 11.4 H (0-9) % Creatinine 1.0 H (0.5-0.9) mg/dL Random Glucose 140 H (74-109) mg/dL C-Reactive Protein 0.55 H (<0.5) mg/dL Condition at Discharge: (2) Stable Discharge Medications - Discharge Medications Prescriptions: Hydrocodone/APAP 5/325Mg [[place] 5Mg/325Mg] 1 each PO BID PRN 3 Days #6 tab PRN Reason: Pain - Mild To Moderate (1-7) Home Medications: Ambulatory Orders Ascorbate Calcium/Bioflavonoid [Eva-C 1,000 mg Tablet] 1 each PO DAILY tab [Last Taken 06/14/18] Ascorbic Acid/Vitamin E/Biotin [Hair Skin Nails-Biotin Gummies] 1 each PO DAILY tab.chew 08/25/16 [Last Taken 06/14/18] Carboxymethylcell/Glycerin/Pf [Refresh Optive Sensitive Drops] 1 each OP DAILY 08/25/16 [Last Taken 06/14/18] Docusate Sodium 100 mg PO TID cap 08/25/16 [Last Taken 06/14/18] Fish Oil/Dha/Epa [Fish Oil 1,200 mg Fish Oil] 1 each PO BID cap 08/25/16 [Last Taken 06/14/18] Multivitamin [Multi-Vitamin Daily] 1 each PO DAILY tab 08/25/16 [Last Taken 10/25] Polyethylene Glycol 3350 [Miralax] 1 packet PO DAILY packet 08/25/16 [Last Taken 06/14/18] Propylene Glycol/Peg 400 [Systane Liquid Gel Eye Drops] 15 ml OP DAILY 08/25/16 [Last Taken 06/14/18] Psyllium Husk (with Sugar) [Metamucil Packet] 3.4 gm PO DAILY PRN 08/25/16 [ Last Taken 06/14/18] Ubidecarenone [Co Q-10] 200 mg PO DAILY cap 08/25/16 [Last Taken 06/14/18] Pantoprazole Sodium [Protonix] 40 mg PO BID 90 Days #180 tab 10/13/17 [Last Taken 06/14/18] Atorvastatin Calcium 80 mg PO DAILY 04/15/18 [Last Taken 06/14/18] Levothyroxine Sodium 100 mcg PO DAILY 04/15/18 [Last Taken 06/14/18] Acetaminophen [Tylenol 325Mg] 650 mg PO Q6H PRN tablet 06/15/18 [Last Taken Unknown] Clindamycin HCl [Cleocin HCl] 300 mg PO TID 9 Days #27 capsule 06/15/18 [Last Taken Unknown] Hydrocodone/APAP 5/325Mg [[place] 5Mg/325Mg] 1 each PO BID PRN 3 Days #6 tab 06/15 [Last Taken Unknown] Sennosides/Docusate Sodium [Senna Plus] 1 each PO DAILY capsule 06/15/18 [Last Taken Unknown] Discharge Plan - Discharge Instructions Diet at Discharge: Advance to Usual Diet Additional Instructions: Continue the antibiotic clindamycin 300mg every 8 hours for the next 9 days, DO NOT take the keflex as it was not controlling the infection. Watch the redness on your leg, we outlined it and the redness has decreased since starting the clindamycin and should continue to improve. Seek immediate medical attention if the leg becomes more painful, more swollen, redness increases or a red streak is noticed. Follow up with your PCP in 1-2 weeks. [place] was sent to the pharmacy, you can take 1 tab up to twice a day for the next 3 days, DO NOT DRINK ALCOHOL OR DRIVE WHILE TAKING THESE. Quality Measures - Quality Measures Quality Measures: Advance Directives, Documentation of Current Medications in Medical Record, Elder Maltreatment Screen and Follow-Up Plan, Screening for High Blood Pressure and F/U Documented - Current Medications Quality Measure: Measure #130: Documentation of Current Medications Documentation of Current Medications: <Current Medications Documented/Reviewed> [[id number]] - Blood Pressure Screening Quality Measure: Screening for High Blood Pressure and Follow-Up Documented Does Patient Have Any of the Following: Active Dx of HTN Blood Pressure Classification: Pre-Hypertensive BP Reading Systolic Measurement: 139 Diastolic Measurement: 81 Screening for High Blood Pressure: Patient Exclusion, Hx of HTN [G9744] - Advance Directives Quality Measure: Measure #47: Care Plan Advance Directives Established: No Advance Directives Information Provided To Patient: Yes Advance Directives on File: No Living Will: No Power of Tractor Trailer Mechanic: Yes Power of Tractor Trailer Mechanic Name: Sandy Becker Advance Care Planning: Not Discussed or Documented [[id number]] - Elder Abuse Suspicion Index Screening: Elder Abuse Suspicion Index Screening Rely on people for bathing, dressing, shopping, banking, etc: No Prevented from getting food, clothes, medication, etc: No Made to feel shamed or threatened by someone: No Forced to sign papers or use money against will: No Feel afraid, touched in ways not wanted or hurt physically: No Poor eye contact, withdrawn, malnourished, cuts or bruises: No Screening Result: Negative result EASI Reference Information: Oz RHODES, Umberto C, Nely Cortez, Hadley Hussein.Development and validation of a tool to assist physicians identification of elder abuse: The Elder Abuse Suspicion Index (EASI ). Journal of Elder Abuse and Neglect, 2008; 20 (3): 276-300. - Elder Maltreatment Screen Quality Measures: Elder Maltreatment Screen and Follow-Up Plan Elder Maltreatment Screen: <Negative, No Follow-Up Plan Required> [G8734]
== END 2018-06-15 12:45 | disposition home or self-care (01) ==
LOC: ER 10:30 → MEDSURG 13:12
PROVIDERS: ADMIT Internal Medicine; ATTEND Internal Medicine
DX: L03.115 Cellulitis of right lower limb (principal); I48.2 Chronic atrial fibrillation; Z79.01 Long term (current) use of anticoagulants; E11.9 Type 2 diabetes mellitus without complications; E03.9 Hypothyroidism, unspecified; N28.9 Disorder of kidney and ureter, unspecified; M19.90 Unspecified osteoarthritis, unspecified site; M79.7 Fibromyalgia; K21.9 Gastro-esophageal reflux disease without esophagitis; Z95.2 Presence of prosthetic heart valve; Z87.891 Personal history of nicotine dependence; Z86.73 Personal history of transient ischemic attack (TIA), and cerebral infarction without residual deficits
CPT/HCPCS: 80048; 84145; 85025; 85610; 85730; 86140; 96365; 99217; 99220; 99285; J1650